=== PATIENT | male | born 1940 | race Caucasian/White ===

== ENCOUNTER 2017-05-18 20:19 | Emergency (ER) | payer OTHER, BC ==
[2017-05-18 20:26] VITALS: BP 137/76; BMI 33.4
--- NOTE | 2017-05-18 20:59 | DR.GENAD ---
HPI - Complaint/Symptoms Chief Complaint Doctors Comments: Patient complains of nasal congestion, cough with whitiesh to green sputum production for the pat 2-3 days. states he has been using OTC mucinex without improvement. He denies fever, chills, nausea or vomiting. states he has had decreased appetite recently. He denies chest pain of SOB. He denies wheezing or swelling of feet or legs. He denies tobacco or alcohol usage. States his pneumonia shot is up to date. Chief Complaint:: cough, runny nose, congestion, possible fever Self Treatment fo Chief Complaint: mucus and sinus relief - Nurses notes reviewed Nurses Notes Review: Yes - Source History Provided: Patient - Mode of Arrival Mode of Arrival: Ambulatory - Timing Onset of Chief Complaint: 05/04/17 Came on: Gradually - Duration Duration: Intermittent How lon Duration: Days - Location Location: cough with greenis sputum production; nasal congestion - Severity Severity: Moderate - Modifying Factors Worsens:: nothing Improves:: nothing PMH - PMH Past Medical History: Yes Past Medical History: Arthritis, Diabetes, Hypertension Past Surgical History: Yes Surgical History: Abdominal Surgery, Ortho Surgery Past Surgical History Comment: back(2015) nose repair, hernia - Family History History of Family Medical Conditions: Yes Family Medical History: Diabetes Mellitus, Cancer - Social History Do you use any recreational Drugs:: No - infectious screening Have you traveled outside the country in the last 6 months?: No ROS - Review of Systems Constitutional: No Symptoms Reported, Loss of Appetite. negative: See HPI, Chills, Diaphoresis, Fever, Malaise, Weakness, Irritable, Fatigue, Other Eyes: No Symptoms Reported. negative: See HPI, Eye Pain, Blurred Vision, Tearing, Discharge, Photophobia, Diplopia, Other ENTM: No Symptoms Reported, Nose Discharge, Nose Congestion. negative: See HPI , Ear Pain, Ear Discharge, Pulling on Ears, Hearing Loss, Nose Pain, Epistaxis, Mouth Pain, Mouth Swelling, Loose Teeth, Drooling, Throat Pain, Throat Swelling , Ear Foreign Body Respiratoy: No Symptoms Reported, Productive Cough. negative: See HPI, Non- Productive Cough, Moist Cough, Dry Cough, Hacking Cough, Barking Cough, Brassy Cough, Orthopnea, Short of Breath, Stridor, Wheezing, Hemoptysis, Other Cardiovascular: No Symptoms Reported. negative: See HPI, Chest Pain, Edema, Palpitations, Syncope, Cyanosis, Skin Mottling, Other Gastrointestinal/Abdominal: No Symptoms Reported. negative: See HPI, Abdominal Pain, Constipation, Diarrhea, Nausea, Vomiting, Food Intolerance, Other Genitourinary: No Symptoms Reported. negative: See HPI, Discharge, Dysuria, Frequency, Hematuria, Pain, Bleeding, Other Neurological: No Symptoms Reported. negative: See HPI, Anxiety, Depressed, Emotional Problems, Headache, Numbness, Paresthesia, Pre-existing Deficit, Seizure, Tingling, Tremors, Weakness, Dizziness, Problems Walking, Speech Problem, Other Musculoskeletal: No Symptoms Reported Integumentary: No Symptoms Reported Hematologic/Lymphatic: No Symptoms Reported Endocrine: No Symptoms Reported. negative: See HPI, Excessive Sweating, Flushing, Intolerance to Cold, Intolerance to Heat, Increased Hunger, Increased Thirst, Increased Urine, Unexplained Weight Gain, Unexplained Weight Loss, Failure to Thrive, Decreased Appetite, Other Psychiatric: No Symptoms Reported. negative: See HPI, Anxiety, Depression, Hallucinations, Excessive crying, Suicidal, Other PE - Vital Signs Vitals: Temperature 98.3 F Pulse Rate 82 Respiratory Rate 18 Blood Pressure [Left Arm] 114/57 Blood Pressure [Right Arm] 133/67 Blood Pressure 137/76 O2 Sat by Pulse Oximetry 98 - General Limitations: No Limitations General Appearance: Alert, In No Apparent Distress. negative: Appears Intoxicated, Anxious, Lethargic, Obtunded, In Distress, Obese, Cachectic, Other - Head Head Exam: Normal Inspection, Atraumatic, Normocephalic - Eyes Eye exam: Normal Appearance, PERRL, EOMI. negative: Scleral Icterus, Conjunctival Injection, Nystagmus, Miosis, Mydrasis, Periorbital Swelling, Periorbital Tenderness, Other - ENT ENT Exam: Normal Exam, Normal Oropharynx, Normal External Ear Exam, Mucous Membranes Moist, TM's Normal Bilaterally External Ear Exam: Normal External Inspection TM/Canal Exam: Bilateral Normal Nose Exam: Normal Nose Exam Mouth Exam: Normal Inspection. negative: Drooling, Trismus, Lip Swelling, Tongue Elevation, Tongue Swelling, Laceration, Other Throat Exam: Normal Inspection - Neck Neck Exam: Normal Inspection, Full ROM, Trachea Midline. negative: Tenderness, Meningismus, Lymphadenopathy, Thyromegaly, Other - Chest Chest Inspection: Normal Inspection, Symmetric Chest Wall Rise. negative: Tenderness, Rash, Abscess, Other - Respiratory Respiratory Exam: Normal Lung Sounds Bilat. negative: Accessory Muscle Use, Chest Wall Tenderness, Prolonged Expiratory Phase, Respiratory Distress, Stridor , Other Respiratory Exam: Bilateral Clear to Auscultation, Bilateral Rales (bilateral basilar rales) - Cardiovascular Cardiovascular Exam: Regular Rate, Normal Rhythm, Normal Heart Sounds, Systolic Murmur - Abdominal Exam Abdominal Exam: Normal Inspection, Normal Bowel Sounds, Soft. negative: Distention, Tenderness, Guarding, Rebound, Rigidity, Dimnished Bowel Sounds, Hyperactive Bowel Sounds, Hypoactive Bowel Sounds, Organomegaly, Trauma, Incision, Ascites, Mass, Bruit, Pulsatile Mass, Hernia, Other Abdominal Tenderness: negative: RUQ, RLQ, LUQ, LLQ, Epigastrium, Suprapubic, Diffuse, Mild, Moderate, Severe, Other - Extremities Extremities Exam: Normal Inspection, Full ROM, Normal Capillary Refill. negative: Tenderness, Edema, Joint Swelling, Calf Tenderness, Other - Back Back Exam: Normal Inspection, Full ROM. negative: Tenderness, (R) CVA Tenderness, (L) CVA Tenderness, Muscle Spasm, Paraspinal Tenderness, Vertebral Tenderness, Rashes, (R) Sciatic Notch Tenderness, (L) Sciatic Notch Tendern, (R ) Straight Leg Raise, (L) Straight Leg Raise, Other - Neurologic Neurological Exam: Alert, Oriented X3, CN II-XII Intact, Normal Gait, Reflexes Normal - Psychiatric Psychiatric Exam: Normal Affect, Normal Mood - Skin Skin Exam: Warm, Dry, Intact, Normal Color ROR - Labs Reviewed Laboratory Results Reviewed?: Yes (all x-ray results reviewed and discussed with patient and spouse) - XRAY XRAY Interpreted by: Radiologist (CXR: Lungs mildly hyperexpaned w/chronic interstitial change suggestive of COPD. Multiple healed rib fractures on right.) - Diagnosis Discharge Problem: Bronchitis Sinusitis, acute Qualifiers: Sinusitis location: ethmoidal - Discharge Plan Disposition: HOME, SELF-CARE Condition: Stable Prescriptions: Cetirizine HCl [Zyrtec Tab 10 mg] 10 mg PO DAILY #30 tab Fluticasone Nasal Whitney [FLONASE NASAL SPRAY *] 2 sprays ENOSTRIL DAILY #1 each Levofloxacin [LEVAQUIN TAB 500 MG *] 500 mg PO DAILY #10 tab - Follow ups/Referrals Follow ups/Referrals: ABEL JENKINS [Primary Care Provider] - 3 days - Instructions Instructions: Acute Bronchitis, Sinusitis, Adult, [id number]
[2017-05-18] MEDS ORDERED: ZyrTEC TAB 10 MG PO SCH (21:00)
[2017-05-18] MEDS ORDERED: LEVAQUIN TAB 500 MG PO SCH (21:00)
[2017-05-18] MEDS ORDERED: ZyrTEC TAB 10 MG ONE (21:06)
[2017-05-18] MEDS ORDERED: LEVAQUIN TAB 500 MG ONE (21:07)
--- NOTE | 2017-05-18 21:16 | RAD ---
PA and lateral chest Indication: Cough and dyspnea with congestion. Comparison: June 07, 2015. Impression: Heart size is stable. The lungs are mildly hyperexpanded with chronic interstitial change suggestive of COPD. There is no convincing edema, effusion, pneumothorax, or focal consolidation to suggest pneu monia. There are multiple stable healed rib fractures on the right. Reported By:
== END 2017-05-18 21:45 | disposition home or self-care (01) ==
LOC: ER 20:30
DX: J40 Bronchitis, not specified as acute or chronic (principal); J32.9 Chronic sinusitis, unspecified
CPT/HCPCS: 71020; 99282; 99283

== ENCOUNTER 2017-06-14 08:32 | Inpatient (IN) | payer OTHER, BC ==
[2017-06-14 08:43] VITALS: BMI 33.4
--- NOTE | 2017-06-14 09:13 | DR.GENAD ---
HPI - PCP Primary Care Physician: Reese - Complaint/Symptoms Chief Complaint Doctors Comments: INCREASING SOB AND CHEST PAIN TIMES Chief Complaint:: "Starting yesterday I just flet like I couldn't catch my breath. I am usually very active but yesterday I could barely climb the stairs. I also feel like I have a lump in the middle of my chest." - Nurses notes reviewed Nurses Notes Review: Yes - Source History Provided: Patient - Mode of Arrival Mode of Arrival: Ambulatory - Timing Onset of Chief Complaint: 06/14/17 Came on: Suddenly - Duration Duration: Constant Duration: Hours - Severity Severity: Moderate PMH - PMH Past Medical History: Yes Past Medical History: Arthritis, COPD, Diabetes, Hypertension Past Surgical History: Yes Surgical History: Abdominal Surgery, Appendectomy, Cholecystectomy, Other Past Surgical History Comment: Hernia surgery - Family History History of Family Medical Conditions: Yes Family Medical History: Diabetes Mellitus, Cancer - Social History Does patient currently use any type of tobacco product: No Have you used tobacco products in the last 12 months: No Type of Tobacco Use: None Does any household member use tobacco: No Alcohol Use: None Do you use any recreational Drugs:: No Lives With: Spouse Lives Where: Home - infectious screening In the last 2 months have you had wt loss of >10#?: NO Have you had fever, night sweats or hemotysis?: No Have you traveled outside the country in the last 6 months?: No Isolation: Standard PE - Vital Signs Vitals: Temperature 98.4 F Pulse Rate 79 Respiratory Rate 18 Blood Pressure [Left Arm] 114/57 Blood Pressure [Right Arm] 133/67 Blood Pressure 126/75 O2 Sat by Pulse Oximetry 97 ROR - Labs Reviewed Result Diagrams: 06/14/17 09:26 06/14/17 20:24 Laboratory: WBC 12.1 X10^3/uL (3.6-10.0) H 06/14/17 09:26 RBC 4.13 X10^6/uL (4.7-6.0) L 06/14/17 09:26 Hgb 11.6 g/dL (13.5-18.0) L 06/14/17 09:26 Hct 35.3 % (42.0-54.0) L 06/14/17 09:26 MCV 85.5 fL (80.0-100.0) 06/14/17 09: MCH 28.2 pg (27.0-34.0) 06/14/17 09: MCHC 32.9 g/dL (33.0-35.0) L 06/14/17 09: RDW 13.9 % (11.6-16.5) 06/14/17 09:26 Plt Count 377 X10^3/uL (150.0-450.0) 06/14/17 09: MPV 8.1 fL (7.4-11.0) 06/14/17 09:26 Neut % 76.0 % (42.0-75.0) H 06/14/17 09: Lymph % 7.2 % (21.0-51.0) L 06/14/17 09: [place] % 8.0 % (0.0-13.0) 06/14/17 09: Eos % 7.8 % (0.9-2.9) H 06/14/17 09: Baso % 1.0 % (0.2-1.0) 06/14/17 09: Neut # 9.2 x10^3/uL (2.2-4.8) H 06/14/17 09:26 Lymph # 0.9 X10^3/uL (1.3-2.9) L 06/14/17 09:26 [place] # 1.0 x10^3/uL (0.3-0.8) H 06/14/17 09:26 Eos # 0.9 x10^3/uL (0.0-0.2) H 06/14/17 09:26 Baso # 0.1 X10^3/uL (0.0-0.1) 06/14/17 09:26 Absolute Nucleated RBC 0.0 /100WBC 06/14/17 09:26 Sodium 134 mmol/L (136-145) L 06/14/17 09:26 Corrected Sodium 135 mmol/L (136-145) L 06/14/17 09:26 Potassium 4.7 mmol/L (3.5-5.1) 06/14/17 09:26 Chloride 102 mmol/L (98-107) 06/14/17 09:26 Carbon Dioxide 24.4 mmol/L (21-32) 06/14/17 09:26 BUN 33 mg/dL (7-18) H 06/14/17 09:26 Creatinine 1.90 mg/dL (0.70-1.30) H 06/14/17 09:26 Est GFR (MDRD) Af Amer 44 (>60) L 06/14/17 09:26 Est GFR (MDRD) Non-Af 37 (>60) L 06/14/17 09:26 Glucose 445 mg/dL (65-99) H 06/14/17 20:24 POC Glucose (mg/dL) 467 mg/dL (65-99) H* 06/14/17 20:09 Calcium 9.1 mg/dL (8.5-10.1) 06/14/17 09:26 Corrected Calcium 9.7 mg/dL (8.5-10.1) 06/14/17 09:26 Total Bilirubin 0.50 mg/dL (0.2-1.0) 06/14/17 09:26 AST 33 Units/L (15-37) 06/14/17 09:26 ALT 39 Units/L (12-78) 06/14/17 09:26 Alkaline Phosphatase 73 Units/L (46-116) 06/14/17 09:26 Creatine Kinase 367 Units/L (39-308) H 06/14/17 15:28 CK-MB (CK-2) 6.5 ng/mL (0-4.0) H* 06/14/17 15:28 CK/CKMB % Calc 1.8 % (<4) 06/14/17 15:28 Troponin I 0.30 ng/mL (0-1.5) 06/14/17 15:28 B-Natriuretic Peptide 151 pg/mL (0-79) H 06/14/17 09:26 Total Protein 7.8 g/dL (6.4-8.2) 06/14/17 09:26 Albumin 3.2 g/dL (3.4-5.0) L 06/14/17 09:26 Globulin 4.6 g/dL (2.5-4.5) H 06/14/17 09:26 Albumin/Globulin Ratio 0.7 Ratio (1.1-2.1) L 06/14/17 09:26 Specimen Type Clean catch urine 06/14/17 10:43 Urine Color Yellow (YELLOW) 06/14/17 10:43 Urine Appearance Hazy (CLEAR) 06/14/17 10:43 Urine pH 7.0 (5.0 - 8.0) 06/14/17 10:43 Ur Specific Kimball 1.005 (1.000-1.030) 06/14/17 10:43 Urine Protein 2+ (NEGATIVE) 06/14/17 10:43 Urine Glucose (UA) 1+ (NEGATIVE) 06/14/17 10:43 Urine Ketones Negative (NEGATIVE) 06/14/17 10:43 Urine Occult Blood 1+ (NEGATIVE) 06/14/17 10:43 Urine Nitrite Negative (NEGATIVE) 06/14/17 10:43 Urine Bilirubin Negative (NEGATIVE) 06/14/17 10:43 Urine Urobilinogen Normal (NORMAL) 06/14/17 10:43 Ur Leukocyte Esterase Negative (NEGATIVE) 06/14/17 10:43 Urine RBC 0-2 /HPF (NEGATIVE) 06/14/17 10:43 Urine WBC 0-2 /HPF (NEGATIVE) 06/14/17 10:43 Ur Squamous Epith Cells Negative /HPF (NEGATIVE) 06/14/17 10:43 Urine Bacteria Negative /HPF (NEGATIVE) 06/14/17 10:43 Ur Culture Indicated? No/not indicated 06/14/17 10:43 - Discharge Plan Disposition: ADMITTED INPATIENT Condition: Stable - Follow ups/Referrals - Instructions
[2017-06-14 09:49] LABS: BASOPHILS # (AUTO) 0.1 X10^3/uL (0.0-0.1); EOSINOPHILS # (AUTO) 0.9 x10^3/uL (0.0-0.2); EOSINOPHILS % (AUTO) 7.8 % (0.9-2.9); HEMATOCRIT 35.3 % (42.0-54.0); HEMOGLOBIN 11.6 g/dL (13.5-18.0); LYMPHOCYTES # (AUTO) 0.9 X10^3/uL (1.3-2.9); LYMPHOCYTES % (AUTO) 7.2 % (21.0-51.0); MEAN CORPUSCULAR HEMOGLOBIN 28.2 pg (27.0-34.0); MEAN CORPUSCULAR HGB CONC 32.9 g/dL (33.0-35.0); MEAN CORPUSCULAR VOLUME 85.5 fL (80.0-100.0); MEAN PLATELET VOLUME 8.1 fL (7.4-11.0); NEUTROPHILS # (AUTO) 9.2 x10^3/uL (2.2-4.8); PLATELET COUNT 377 X10^3/uL (150.0-450.0); RED BLOOD COUNT 4.13 X10^6/uL (4.7-6.0); RED CELL DISTRIBUTION WIDTH 13.9 % (11.6-16.5); WHITE BLOOD COUNT 12.1 X10^3/uL (3.6-10.0)
[2017-06-14 10:00] LABS: CALCIUM 9.1 mg/dL (8.5-10.1); CARBON DIOXIDE 24.4 mmol/L (21-32); CREATININE 1.9 mg/dL (0.70-1.30); TROPONIN I 0.08 ng/mL (0-1.5)
[2017-06-14 10:25] LABS: ALBUMIN 3.2 g/dL (3.4-5.0); CKMB % 1.6 % (<4); COR CA(FOR HYPOALB) 9.7 mg/dL (8.5-10.1); TOTAL PROTEIN 7.8 g/dL (6.4-8.2)
[2017-06-14 10:26] LABS: CREATINE KINASE MB 7.9 ng/mL (0-4.0)
--- NOTE | 2017-06-14 10:40 | RAD ---
HISTORY: Chest pain, difficulty breathing. Study: Single-view chest, done portably Comparison: May 18, 2017 Findings: Cardiac monitoring electrodes are noted on the chest. There is a slight [id number] deviation of th e mediastinum and trachea, reflecting volume loss in the left chest. The right lung is clear. Increas ed interstitial markings are present involving the left lung and both the left upper and left lower r egions. Findings may represent atelectasis or infiltrate . There are baseline changes likely represen ting COPD. No pleural fluid or pneumothorax is seen. Multiple healed rib fractures are present on the right. No acute osseous changes are identified. IMPRESSION: Changes of COPD with volume loss and increasing interstitial markings present in the left lung repres enting atelectasis or infiltrate. Reported By:
[2017-06-14 10:57] LABS: BILIRUBIN,URINE NEGATIVE (NEGATIVE); BLOOD/HEMOGLOBIN,URINE 1+ (NEGATIVE); GLUCOSE, URINE 1+ (NEGATIVE); KETONES,URINE NEGATIVE (NEGATIVE); LEUKOCYTE ESTERASE ,URINE NEGATIVE (NEGATIVE); NITRITES,URINE NEGATIVE (NEGATIVE); PROTEIN,URINE 2+ (NEGATIVE); UROBILINOGEN,URINE NORMAL (NORMAL)
[2017-06-14 11:12] LABS: APPEARANCE,URINE HAZY (CLEAR); COLOR,URINE YELLOW (YELLOW); RBC,URINE 0-2 /HPF (NEGATIVE)
[2017-06-14 11:13] LABS: BACTERIA,URINE NEGATIVE /HPF (NEGATIVE); SQUAMOUS EPITHELIAL CELL,UR NEGATIVE /HPF (NEGATIVE)
[2017-06-14] MEDS ORDERED: DUONEB 0.5 MG/3 MG NEB ONE (11:14)
[2017-06-14] MEDS ORDERED: ROCEPHIN VIAL 1 GM 1 GM in NS 50 ML IV + SPIKE MINIBAG* 50 ML IV ONE (11:14)
[2017-06-14] MEDS ORDERED: SOLU-Medrol 125 MG VIAL IVP ONE (11:14)
[2017-06-14] MEDS ORDERED: NS 1/2 1000 ML IV 1,000 ML IV ONE (11:41)
[2017-06-14] MEDS ORDERED: ROCEPHIN 1 GM IV PREMIX * OUT OF STOCK 50 ML IV ONE (11:41)
[2017-06-14] MEDS ORDERED: SOLU-Medrol 125 MG VIAL ONE (11:41)
[2017-06-14] MEDS ORDERED: NS 1/2 1000 ML IV 1,000 ML IV SCH (12:00)
[2017-06-14] MEDS ORDERED: LEVAQUIN TAB 500 MG PO SCH (14:00)
[2017-06-14] MEDS: NS 1000 ML 1,000 ML IV SCH ×2 (15:54→15:57)
[2017-06-14] MEDS: DUONEB 0.5 MG/3 MG NEB SCH ×2 (15:59→21:26)
[2017-06-14] MEDS ORDERED: LEVAQUIN PREMIX IV 750 MG 750 MG/150 ML BAG IV SCH (16:00)
[2017-06-14] MEDS: HumuLIN R SUBCUT PRN ×2 (17:03→21:04)
[2017-06-14 17:41] LABS: CKMB % 1.8 % (<4); CREATINE KINASE MB 6.5 ng/mL (0-4.0); TROPONIN I 0.3 ng/mL (0-1.5)
[2017-06-14] MEDS ORDERED: PROTONIX INJ 40 MG VIAL ONE (18:18)
[2017-06-14] MEDS ORDERED: SNACK - Diabetic Appropriate PO SCH (20:00)
[2017-06-14 22:42] LABS: CKMB % 2.5 % (<4); TROPONIN I 0.6 ng/mL (0-1.5)
[2017-06-14 22:49] LABS: CREATINE KINASE MB 8.7 ng/mL (0-4.0)
[2017-06-14] MEDS ORDERED: MAALOX or MYLANTA PO ONE (23:30)
[2017-06-15] MEDS ORDERED: NITRO-BID OINT 2% Multi-Dose tube ONE (00:57)
[2017-06-15] MEDS ORDERED: ASPIRIN 81 MG CHEWTAB ONE (00:59)
[2017-06-15] MEDS ORDERED: PLAVIX ONE (00:59)
[2017-06-15] MEDS ORDERED: HEPARIN SODIUM IN D5W 25,000 UNITS/500 ML BAG IV ONE (00:59)
[2017-06-15] MEDS ORDERED: LOPRESSOR INJ 5 MG AMP ONE (01:00)
[2017-06-15] MEDS ORDERED: HEPARIN SODIUM IN D5W 25,000 UNITS/500 ML BAG IV PRN (01:26)
[2017-06-15] MEDS ORDERED: LOPRESSOR INJ 5 MG AMP IVP ONE ×3 (01:26→02:07)
[2017-06-15] MEDS ORDERED: ASPIRIN 81 MG CHEWTAB PO ONE (01:26)
[2017-06-15] MEDS ORDERED: NITRO-BID OINT 2% Multi-Dose tube TD ONE (01:26)
[2017-06-15] MEDS ORDERED: HumuLIN R SUBCUT PRN (01:26)
[2017-06-15] MEDS ORDERED: PLAVIX PO ONE (01:26)
[2017-06-15] MEDS ORDERED: HEPARIN SODIUM INJ 5000 UNITS ONE (01:33)
[2017-06-15] MEDS ORDERED: TRAMADOL HCL PO PRN (01:44)
[2017-06-15] MEDS ORDERED: LYRICA CAP 50 MG PO SCH (02:00)
[2017-06-15] MEDS ORDERED: LYRICA CAP 50 MG PO ONE (02:02)
--- NOTE | 2017-06-15 02:13 | DR.H&P ---
H&P - History & Physical for Day of: H&P Date: 06/14/17 - Chief Complaint Chief Complaint: shortness of breath - Allergies Allergies/Adverse Reactions: Allergies Allergy/AdvReac Type Severity Reaction Status Date / Time No Known Drug Allergies Allergy Verified 05/18/17 20:27 - History of Present Illness History of Present Illness: Patient is a 76-year-old white male who presented to the [facility] emergency room complaining of shortness of breath for the past 2-3 days. Patient also complained of a "lump" feeling in his chest. The patient also complained of some cough and congestion. Patient's chest x-ray revealed questionable left lower lobe infiltrate as well as changes characteristic of COPD. Patient also stated that shortness of breath was worse with exertion. Patient was subsequently admitted for outpatient observation for further workup. - Past Medical History Past Medical History: Arthritis, COPD, Diabetes, Hypertension - Past Surgical History Surgical History: Abdominal Surgery, Appendectomy, Cholecystectomy, Other - Family History Family Medical History: Diabetes Mellitus, Cancer - Social History Does patient currently use any type of tobacco product: No Have you used tobacco products in the last 12 months: No Type of Tobacco Use: None Does any household member use tobacco: No Alcohol Use: None Drug Use: None - Medications Home Medications: Diclofenac Sodium [Diclofenac Sodium ER] 1 tab PO DAILY 06/14/17 [History Confirmed 06/14/17] Fenofibrate [TRICOR 160 MG *] 1 tab PO HS 06/14/17 [History Confirmed 06/14/17] Omeprazole [Omeprazole] 1 cap PO HS 06/14/17 [History Confirmed 06/14/17] Pregabalin [Lyrica] 1 cap PO BID 06/14/17 [History Confirmed 06/14/17] - Review of Systems Constitutional: See HPI Eyes: No Symptoms Reported ENT: No Symptoms Reported Respiratory: See HPI Cardiovascular: Chest Pain, See HPI Gastrointestinal: No Symptoms Reported Genitourinary: No Symptoms Reported Musculoskeletal: No Symptoms Reported Skin: No Symptoms Reported Neurological: No Symptoms Reported - Physical Exam Vital Signs: Temperature 97.5 F Pulse Rate [Left Radial] 108 Pulse Rate 99 Respiratory Rate 24 Blood Pressure [Left Arm] 171/85 Blood Pressure [Right Arm] 133/67 Blood Pressure 157/82 O2 Sat by Pulse Oximetry 90 Oriented: Normal Eyes: Normal Ear: Normal Nose: Normal Throat: Normal Respiratory: Rhonchi Throughout Cardiovascular: Normal : Normal Auscultation: Bowel Sounds: Normal Palpation: Normal Tenderness: Normal Skin: Normal Musculoskeletal: Normal Psychiatric: Normal Mood Description: Calm Affect: Normal Speech Pattern: Clear - Assessment/Plan (1) Chest pain Qualifiers: Chest pain type: precordial pain Qualified Code(s): R07.2 - Precordial pain Status: Acute Plan: 1. Admit for further workup. 2. Telemetry. 3. O2 at 2 L/m per nasal cannula. 4. Chest x-ray. 5. CMP and CBC. 6. UA C&S. 7. EKG every 3 hours 3 then every morning 2. 8. Troponin every 3 hours 3. 9. Xopenex jet nebulizer treatments every 6 hours and every 4 hours when necessary. 10. Solu-Medrol 40 mg IV every 8 hours. 11. Levaquin 500 milligrams IV daily. 12. Continue home medications. 13. For further orders to chart (2) Acute respiratory distress Status: Acute Plan: as above (3) Acute exacerbation of chronic obstructive pulmonary disease (COPD) Status: Acute Plan: as above (4) Left lower lobe pneumonia Status: Acute Plan: as above
[2017-06-15] MEDS ORDERED: LOPRESSOR TAB 25 MG ONE (02:25)
[2017-06-15] MEDS ORDERED: HEPARIN SODIUM INJ 5000 UNITS IVP ONE (02:45)
[2017-06-15] MEDS ORDERED: LOPRESSOR TAB 25 MG PO SCH (03:00)
[2017-06-15] MEDS ORDERED: ROBITUSSIN DM PO PRN (03:30)
[2017-06-15] MEDS ORDERED: NEURONTIN TAB 600 MG ONE (05:39)
[2017-06-15] MEDS ORDERED: NEURONTIN TAB 600 MG PO SCH (06:00)
[2017-06-15 06:22] VITALS: BP 143/70
[2017-06-15] MEDS ORDERED: ULTRAM PO PRN (06:45)
[2017-06-15 06:49] LABS: BASOPHILS # (AUTO) 0.1 X10^3/uL (0.0-0.1); BASOPHILS % (AUTO) 0.7 % (0.2-1.0); EOSINOPHILS # (AUTO) 0.1 x10^3/uL (0.0-0.2); EOSINOPHILS % (AUTO) 0.4 % (0.9-2.9); HEMATOCRIT 34.8 % (42.0-54.0); HEMOGLOBIN 11.6 g/dL (13.5-18.0); LYMPHOCYTES # (AUTO) 0.7 X10^3/uL (1.3-2.9); LYMPHOCYTES % (AUTO) 5.4 % (21.0-51.0); MEAN CORPUSCULAR HEMOGLOBIN 28.5 pg (27.0-34.0); MEAN CORPUSCULAR HGB CONC 33.3 g/dL (33.0-35.0); MEAN CORPUSCULAR VOLUME 85.7 fL (80.0-100.0); MEAN PLATELET VOLUME 7.9 fL (7.4-11.0); MONOCYTES # (AUTO) 0.8 x10^3/uL (0.3-0.8); NEUTROPHILS # (AUTO) 11.4 x10^3/uL (2.2-4.8); NEUTROPHILS % (AUTO) 87.5 % (42.0-75.0); PLATELET COUNT 319 X10^3/uL (150.0-450.0); RED BLOOD COUNT 4.06 X10^6/uL (4.7-6.0); RED CELL DISTRIBUTION WIDTH 13.6 % (11.6-16.5)
[2017-06-15 06:57] LABS: CALCIUM 9.1 mg/dL (8.5-10.1); CARBON DIOXIDE 21.3 mmol/L (21-32); COR CA(FOR HYPOALB) 9.9 mg/dL (8.5-10.1); CREATININE 1.87 mg/dL (0.70-1.30)
[2017-06-15 06:58] LABS: CHOL/HDL RATIO 4.4 (0.0-5.0)
[2017-06-15] MEDS ORDERED: PROTONIX INJ 40 MG VIAL IVP SCH ×2 (09:00)
[2017-06-15] MEDS ORDERED: ROCEPHIN VIAL 1 GM 1 GM in NS 50 ML IV + SPIKE MINIBAG* 50 ML IV SCH ×2 (09:00)
[2017-06-15] MEDS ORDERED: SOLU-Medrol 40 MG VIAL IVP SCH ×2 (09:00)
[2017-06-15] MEDS ORDERED: SYNTHROID 175 mcg TAB PO SCH (09:00)
[2017-06-15] MEDS ORDERED: DICLOFENAC SODIUM PO SCH (09:00)
[2017-06-15] MEDS ORDERED: XOPENEX 1.25 MG/3 ML NEBULE NEB SCH ×2 (09:00)
[2017-06-15] MEDS ORDERED: FLONASE NASAL SPRAY ENOSTRIL SCH (09:00)
[2017-06-15] MEDS ORDERED: ASPIRIN EC 81 MG PO SCH (09:00)
[2017-06-15] MEDS ORDERED: NS 1000 ML 1,000 ML IV SCH (14:00)
[2017-06-15] MEDS ORDERED: SNACK - Diabetic Appropriate PO SCH (20:00)
[2017-06-15] MEDS ORDERED: PRAVACHOL PO SCH (21:00)
[2017-06-15] MEDS ORDERED: PATIENT'S HOME MEDICATION (Omeprazole [Omeprazole] 1 CAP) PO SCH (21:00)
[2017-06-15] MEDS ORDERED: TRICOR TAB 160 MG PO SCH (21:00)
[2017-06-15] MEDS ORDERED: BENADRYL CAP/TAB 25 MG PO SCH (21:00)
[2017-06-16] MEDS ORDERED: LEVAQUIN PREMIX IV 750 MG 750 MG/150 ML BAG IV SCH (09:00)
== END 2017-06-15 06:55 | disposition short-term general hospital (02) | DRG 193 ==
LOC: ER 08:35 → MED/SURG 14:10 → OBSVTOIN 06-15 00:59 → ICU 06-15 01:02
PROVIDERS: ADMIT Internal Medicine; ATTEND Internal Medicine
DX: J18.1 Lobar pneumonia, unspecified organism (principal); R06.02 Shortness of breath; R07.89 Other chest pain; M13.89 Other specified arthritis, multiple sites; J44.1 Chronic obstructive pulmonary disease with (acute) exacerbation; E11.65 Type 2 diabetes mellitus with hyperglycemia; I10 Essential (primary) hypertension; R06.00 Dyspnea, unspecified; I21.3 ST elevation (STEMI) myocardial infarction of unspecified site; R79.1 Abnormal coagulation profile
CPT/HCPCS: 36415; 71010; 80053; 80061; 81001; 82550; 82553; 82947; 83880; 84484; 85025; 85610; 85730; 87040; 93005; 93010; 94640; 94760; 96365; 96367; 96374; 96375; 99284; A4222; C9113; G0378; J0696; J1644; J1815; J1956; J2930; J3490; J7620

== ENCOUNTER → 2017-10-26 | Outpatient (CLI) | payer OTHER, BC | LOC: LAB 16:38 | PROVIDERS: ATTEND Internal Medicine | DX: R73.9 Hyperglycemia, unspecified (principal) | CPT/HCPCS: 36415; 82947 ==

== ENCOUNTER → 2017-10-28 | Outpatient (CLI) | payer OTHER, BC | LOC: LAB 17:08 | PROVIDERS: ATTEND Internal Medicine | DX: R73.9 Hyperglycemia, unspecified (principal) | CPT/HCPCS: 36415; 82947 ==

== ENCOUNTER 2017-11-01 10:14 | Day surgery (SDC) | payer OTHER, BC ==
[~2017-11-01 10:14] MED LIST: NS 1000 ML 1,000 ML ONE
[2017-11-01] MEDS ORDERED: DIPRIVAN VIAL 20 ML ONE (10:47)
[2017-11-01 12:19] VITALS: BP 120/65
== END 2017-11-01 11:30 | disposition home or self-care (01) ==
LOC: SURG1 10:14
PROVIDERS: ATTEND Internal Medicine Gastroenterology
PROC: 0DC68ZZ Extirpation of Matter from Stomach, Via Natural or Artificial Opening Endoscopic (ICD-10-PCS; 2017-11-01)
PROC: 0DJ08ZZ Inspection of Upper Intestinal Tract, Via Natural or Artificial Opening Endoscopic (ICD-10-PCS; principal; 2017-11-01 17:15)
DX: R10.13 Epigastric pain (principal); Z43.1 Encounter for attention to gastrostomy; K21.9 Gastro-esophageal reflux disease without esophagitis; K29.60 Other gastritis without bleeding; R13.19 Other dysphagia
CPT/HCPCS: 99100; A4217; J3490

== ENCOUNTER → 2017-12-20 | Outpatient (CLI) | payer OTHER, BC ==
--- NOTE | 2017-12-20 13:49 | RAD ---
Examination: Chest, PA and lateral views History: SOB and cough, history of prostate CA Comparison 06/14/2017 Findings: Continued normal heart size. There are new sternal wires identified. Bilateral interstitial infiltrates are now present without evidence for mass formation, localized consolidation, pleural fl uid or pneumothorax. Impression: 1. Interval performance sternotomy since 06/14/2017. 2. Bilateral interstitial pulmonary process is nonspecific and may represent pneumonia. The possibili ty of metastatic disease should be clinically considered, given the history provided. Reported By:
== END ==
LOC: RAD 13:25
PROVIDERS: ATTEND Internal Medicine
DX: J44.9 Chronic obstructive pulmonary disease, unspecified (principal); I50.22 Chronic systolic (congestive) heart failure
CPT/HCPCS: 71046

== ENCOUNTER 2017-12-25 08:58 | Inpatient (IN) | payer OTHER, BC ==
[2017-12-25 09:17] VITALS: BMI 33.4
--- NOTE | 2017-12-25 09:20 | DR.SOBA ---
HPI - Complaints Chief Complaint Doctors Comments: INCREASING SOB TIMES SEVERAL DAYS. Chief Complaint:: PT C/O EATING HIS CEREAL THEN HE GOT SOB AND STARTED HAVING A DULL ACHE UNDER HIS BREAST BONE AND HE WANTED TO BE CHECKED OUT ,,BR PTS LUNGS ARE CLEAR PT WEARS HOME 02 2 LPM,,, - Reviewed Nurses Notes Reviewed: Yes - Source History Provided: Patient - Mode of Arrival Mode of Arrival: EMS - Timing Onset of Chief Complaint: 12/25/17 - Duration Duration: Days - Context Onset:: At Rest, With Light Exertion PE Risk Factors:: None History of:: COPD, CHF Currently on:: Inhaled Bronchodilators, Steroids Prehospital Care:: O2 - Modifying Factors Worsens:: Lying Flat Improves:: Sitting Up - Associated Signs and Symptoms Associated Signs and Symptoms: Wheeze, Cough, Leg Swelling - If Chest Pain Quality: Pressure like, Heavy Location: Chest Wall (EPIGASTRIC AREA.) - If Cough Cough: Productive, Green PMH - PMH Past Medical History: Yes Past Medical History: Arthritis, COPD, Diabetes, Hypertension Past Surgical History: Yes Surgical History: Abdominal Surgery, Appendectomy, Cholecystectomy, Other - Family History History of Family Medical Conditions: Yes Family Medical History: Diabetes Mellitus, Cancer - Social History Does patient currently use any type of tobacco product: No Have you used tobacco products in the last 12 months: No Type of Tobacco Use: None Does any household member use tobacco: No Alcohol Use: None Do you use any recreational Drugs:: No Lives With: Family Lives Where: Home - infectious screening In the last 2 months have you had wt loss of >10#?: NO Have you had fever, night sweats or hemotysis?: No Have you traveled outside the country in the last 6 months?: No Isolation: Standard ROS - Review of Systems Constitutional: Weakness, Fatigue. negative: Chills, Fever Eyes: negative: Eye Pain, Discharge ENTM: Ear Pain (EAR POPPING), Nose Congestion. negative: Nose Discharge, Throat Pain Respiratoy: Productive Cough, Short of Breath, Wheezing. negative: Hemoptysis Cardiovascular: Chest Pain, Edema Gastrointestinal/Abdominal: No Symptoms Reported. negative: Abdominal Pain, Diarrhea, Nausea, Vomiting Genitourinary: negative: Dysuria, Hematuria Musculoskeletal: Muscle Pain Integumentary: Wound (HEELING WOUND LT SHEEN.), Other (PRESSURE ULCER HEEL) Hematologic/Lymphatic: Easy Bleeding, Easy Bruising Endocrine: No Symptoms Reported All Other Systems: Reviewed and Negative PE - Vital Signs Vitals: Temperature 97.7 F Pulse Rate 61 Respiratory Rate 20 Blood Pressure [Left Arm] 143/70 Blood Pressure [Right Arm] 133/67 Blood Pressure 126/58 O2 Sat by Pulse Oximetry 100 - General Limitations: No Limitations General Appearance: Alert, In Distress - Head Head Exam: Normal Inspection - Eyes Eye exam: Normal Appearance - ENT ENT Exam: Normal External Ear Exam - Neck Neck Exam: Trachea Midline - Chest Chest Inspection: Symmetric Chest Wall Rise - Respiratory Respiratory Exam: Normal Lung Sounds Bilat Respiratory Exam: Bilateral Wheezing, Bilateral Rhonchi, Upper Wheezing, Upper Rhonchi, Lower Wheezing, Lower Rhonchi - Cardiovascular Cardiovascular Exam: Regular Rate, Normal Rhythm, Normal Heart Sounds - Abdominal Exam Abdominal Exam: Normal Bowel Sounds, Soft. negative: Tenderness - Extremities Extremities Exam: Edema - Neurologic Neurological Exam: Alert, Oriented X3 - Skin Skin Exam: Erythema - Discharge Plan Condition: Stable - Follow ups/Referrals Follow ups/Referrals: NFD,None [Primary Care Provider] - 3 days - Instructions
[2017-12-25] MEDS ORDERED: LASIX IVP ONE ×2 (09:29→09:57)
[2017-12-25] MEDS ORDERED: DUONEB 0.5 MG/3 MG NEB ONE (09:29)
[2017-12-25 10:13] LABS: BILIRUBIN,URINE NEGATIVE (NEGATIVE); BLOOD/HEMOGLOBIN,URINE NEGATIVE (NEGATIVE); GLUCOSE, URINE NEGATIVE (NEGATIVE); KETONES,URINE NEGATIVE (NEGATIVE); LEUKOCYTE ESTERASE ,URINE 2+ (NEGATIVE); NITRITES,URINE NEGATIVE (NEGATIVE); PROTEIN,URINE 1+ (NEGATIVE); UROBILINOGEN,URINE NORMAL (NORMAL)
[2017-12-25 10:16] LABS: APPEARANCE,URINE CLEAR (CLEAR); COLOR,URINE YELLOW (YELLOW)
[2017-12-25 10:17] LABS: BACTERIA,URINE NEGATIVE /HPF (NEGATIVE); MUCUS,URINE FEW /HPF (NEGATIVE); RBC,URINE NONE SEEN /HPF (NONE SEEN); SQUAMOUS EPITHELIAL CELL,UR NEGATIVE /HPF (NEGATIVE)
[2017-12-25 10:28] LABS: BASOPHILS # (AUTO) 0.1 X10^3/uL (0.0-0.1); BASOPHILS % (AUTO) 0.8 % (0.2-1.0); EOSINOPHILS # (AUTO) 0.7 x10^3/uL (0.0-0.2); EOSINOPHILS % (AUTO) 8.7 % (0.9-2.9); HEMATOCRIT 32.9 % (42.0-54.0); HEMOGLOBIN 11.1 g/dL (13.5-18.0); LYMPHOCYTES # (AUTO) 1.2 X10^3/uL (1.3-2.9); LYMPHOCYTES % (AUTO) 16.2 % (21.0-51.0); MEAN CORPUSCULAR HGB CONC 33.6 g/dL (33.0-35.0); MEAN CORPUSCULAR VOLUME 86.2 fL (80.0-100.0); MEAN PLATELET VOLUME 8.6 fL (7.4-11.0); MONOCYTES # (AUTO) 0.8 x10^3/uL (0.3-0.8); MONOCYTES % (AUTO) 10.5 % (0.0-13.0); NEUTROPHILS # (AUTO) 4.9 x10^3/uL (2.2-4.8); NEUTROPHILS % (AUTO) 63.8 % (42.0-75.0); PLATELET COUNT 244 X10^3/uL (150.0-450.0); RED BLOOD COUNT 3.82 X10^6/uL (4.7-6.0); RED CELL DISTRIBUTION WIDTH 15.3 % (11.6-16.5); WHITE BLOOD COUNT 7.7 X10^3/uL (3.6-10.0)
[2017-12-25 10:43] LABS: B-TYPE NATRIURETIC PEPTIDE 257 pg/mL (0-79); LACTIC ACID 1.2 mmol/L (0.4-2.0)
[2017-12-25 10:55] LABS: ALANINE AMINOTRANSFERASE 19 Units/L (12-78); ALBUMIN 3.1 g/dL (3.4-5.0); ALKALINE PHOSPHATASE 74 Units/L (46-116); ASPARTATE AMINO TRANSFERASE 16 Units/L (15-37); BLOOD UREA NITROGEN 26 mg/dL (7-18); CARBON DIOXIDE 33.4 mmol/L (21-32); CHLORIDE 100 mmol/L (98-107); CKMB % 3.7 % (<4); COR NA(FOR HYPERGLY) 141 mmol/L (136-145); CREATINE KINASE 68 Units/L (39-308); CREATINE KINASE MB 2.5 ng/mL (0-4.0); CREATININE 1.25 mg/dL (0.70-1.30); SODIUM 138 mmol/L (136-145); TOTAL PROTEIN 7.4 g/dL (6.4-8.2); TROPONIN I < 0.02 ng/mL (0-1.5); eGFR BLACK RACES > 60 (>60); eGFR NON BLACK RACES 59 (>60)
--- NOTE | 2017-12-25 10:55 | RAD ---
ACUTE ABDOMINAL SERIES CLINICAL HISTORY: 77-year-old male with epigastric pain. History of COPD, CHF and prostate cancer. COMPARISON: Chest radiograph 12/20/2017. FINDINGS: Post CABG changes are stable. Stable cardiomegaly with low lung volumes and prominent interstitium/pe rihilar lung markings with trace bilateral effusions and mild pulmonary edema Abdominal radiographs demonstrate a nonobstructive bowel gas pattern. Gas and stool are seen througho ut the colon. There is no small bowel distention. There is no radiographic evidence of pneumoperitone um. Posterior spinal fusion L4-L5 without evidence of hardware failure. Imaged osseous structures are intact. Soft tissues are unremarkable. IMPRESSION: 1. Cardiomegaly with mild pulmonary edema and low lung volumes with trace bilateral effusions. Correl ate clinically for CHF exacerbation and underlying infectious process. 2. Nonobstructive bowel gas pattern without radiographic evidence of pneumoperitoneum. Reported By:
[2017-12-25 11:02] LABS: CALCIUM 8.9 mg/dL (8.5-10.1)
[2017-12-25] MEDS: MAALOX or MYLANTA PO PRN ×2 (14:29→18:08)
[2017-12-25] MEDS: HumuLIN R SUBCUT PRN ×2 (16:43→20:03)
[2017-12-25 17:10] LABS: CKMB % 3.7 % (<4); CREATINE KINASE 59 Units/L (39-308); CREATINE KINASE MB 2.2 ng/mL (0-4.0); TROPONIN I < 0.02 ng/mL (0-1.5)
[2017-12-25] MEDS: ULTRAM PO PRN (17:44)
[2017-12-25] MEDS: SNACK - Diabetic Appropriate PO SCH (19:30)
[2017-12-25] MEDS: LASIX IVP SCH (20:02)
[2017-12-25] MEDS ORDERED: MYLICON TAB 80 MG CHEW PO PRN (20:31)
[2017-12-25] MEDS ORDERED: IPRATROPIUM ALBUTEROL IN SCH (21:00)
[2017-12-25] MEDS: DUONEB 0.5 MG/3 MG NEB SCH (22:55)
[2017-12-25] MEDS: PRAVACHOL PO SCH (23:55)
[2017-12-26 00:07] LABS: CKMB % 3.5 % (<4); CREATINE KINASE 52 Units/L (39-308); CREATINE KINASE MB 1.8 ng/mL (0-4.0); TROPONIN I < 0.02 ng/mL (0-1.5)
[2017-12-26] MEDS: ULTRAM PO PRN ×3 (05:06→20:34)
[2017-12-26] MEDS: SYNTHROID 175 mcg TAB PO SCH (06:00)
[2017-12-26 06:10] LABS: BASOPHILS # (AUTO) 0.1 X10^3/uL (0.0-0.1); BASOPHILS % (AUTO) 1.5 % (0.2-1.0); EOSINOPHILS # (AUTO) 0.5 x10^3/uL (0.0-0.2); EOSINOPHILS % (AUTO) 5.3 % (0.9-2.9); HEMATOCRIT 32.9 % (42.0-54.0); HEMOGLOBIN 11.1 g/dL (13.5-18.0); LYMPHOCYTES # (AUTO) 1.3 X10^3/uL (1.3-2.9); LYMPHOCYTES % (AUTO) 14.2 % (21.0-51.0); MEAN CORPUSCULAR HEMOGLOBIN 28.8 pg (27.0-34.0); MEAN CORPUSCULAR HGB CONC 33.6 g/dL (33.0-35.0); MEAN CORPUSCULAR VOLUME 85.5 fL (80.0-100.0); MEAN PLATELET VOLUME 8.5 fL (7.4-11.0); MONOCYTES # (AUTO) 0.8 x10^3/uL (0.3-0.8); MONOCYTES % (AUTO) 9.3 % (0.0-13.0); NEUTROPHILS # (AUTO) 6.3 x10^3/uL (2.2-4.8); NEUTROPHILS % (AUTO) 69.7 % (42.0-75.0); PLATELET COUNT 230 X10^3/uL (150.0-450.0); RED BLOOD COUNT 3.85 X10^6/uL (4.7-6.0); RED CELL DISTRIBUTION WIDTH 15.3 % (11.6-16.5)
[2017-12-26 06:30] LABS: BLOOD UREA NITROGEN 23 mg/dL (7-18); CALCIUM 8.7 mg/dL (8.5-10.1); CARBON DIOXIDE 38.6 mmol/L (21-32); CHLORIDE 96 mmol/L (98-107); COR NA(FOR HYPERGLY) 139 mmol/L (136-145); CREATININE 1.35 mg/dL (0.70-1.30); SODIUM 138 mmol/L (136-145); eGFR BLACK RACES > 60 (>60); eGFR NON BLACK RACES 54 (>60)
[2017-12-26] MEDS ORDERED: GLUCOPHAGE ONE (08:06)
[2017-12-26] MEDS: MAALOX or MYLANTA PO PRN ×2 (08:17→14:01)
[2017-12-26] MEDS: GLUCOPHAGE PO SCH (08:17)
[2017-12-26] MEDS: GLUCOTROL PO SCH (08:17)
[2017-12-26] MEDS: ZESTRIL TAB 10 MG PO SCH (08:17)
[2017-12-26] MEDS: LASIX IVP SCH ×3 (08:17→20:13)
[2017-12-26] MEDS: TRICOR TAB 160 MG PO SCH (08:17)
[2017-12-26] MEDS: DUONEB 0.5 MG/3 MG NEB SCH ×2 (09:15→20:04)
[2017-12-26] MEDS ORDERED: LANOXIN PO SCH (11:00)
[2017-12-26] MEDS: LOVENOX INJ 30 MG SYR SC SCH ×2 (11:50→20:13)
[2017-12-26 15:30] LABS: ALANINE AMINOTRANSFERASE 20 Units/L (12-78); ALKALINE PHOSPHATASE 71 Units/L (46-116); ASPARTATE AMINO TRANSFERASE 18 Units/L (15-37); CHOL/HDL RATIO 5.1 (0.0-5.0); CHOLESTEROL 128 mg/dL (0-200); COR CA(FOR HYPOALB) 9.5 mg/dL (8.5-10.1); HDL CHOLESTEROL 25 mg/dL (40-60); TRIGLYCERIDES 136 mg/dL (0-150)
[2017-12-26 15:40] LABS: TOTAL PROTEIN 7.2 g/dL (6.4-8.2)
[2017-12-26] MEDS: SNACK - Diabetic Appropriate PO SCH (20:13)
[2017-12-26] MEDS: HumuLIN R SUBCUT PRN (20:14)
[2017-12-26] MEDS: PRAVACHOL PO SCH (20:15)
[2017-12-26] MEDS: TYLENOL 325 MG TAB PO PRN (20:15)
[2017-12-27] MEDS ORDERED: BENADRYL CAP 50 MG PO PRN (00:33)
[2017-12-27 05:46] LABS: BASOPHILS # (AUTO) 0.1 X10^3/uL (0.0-0.1); BASOPHILS % (AUTO) 0.7 % (0.2-1.0); EOSINOPHILS # (AUTO) 0.4 x10^3/uL (0.0-0.2); EOSINOPHILS % (AUTO) 4.2 % (0.9-2.9); HEMATOCRIT 34.6 % (42.0-54.0); HEMOGLOBIN 11.5 g/dL (13.5-18.0); LYMPHOCYTES # (AUTO) 1.3 X10^3/uL (1.3-2.9); LYMPHOCYTES % (AUTO) 14.7 % (21.0-51.0); MEAN CORPUSCULAR HEMOGLOBIN 28.6 pg (27.0-34.0); MEAN CORPUSCULAR HGB CONC 33.4 g/dL (33.0-35.0); MEAN CORPUSCULAR VOLUME 85.8 fL (80.0-100.0); MEAN PLATELET VOLUME 8.5 fL (7.4-11.0); MONOCYTES # (AUTO) 0.9 x10^3/uL (0.3-0.8); MONOCYTES % (AUTO) 10.5 % (0.0-13.0); NEUTROPHILS # (AUTO) 6.2 x10^3/uL (2.2-4.8); NEUTROPHILS % (AUTO) 69.9 % (42.0-75.0); PLATELET COUNT 250 X10^3/uL (150.0-450.0); RED BLOOD COUNT 4.03 X10^6/uL (4.7-6.0); RED CELL DISTRIBUTION WIDTH 15.3 % (11.6-16.5); WHITE BLOOD COUNT 8.9 X10^3/uL (3.6-10.0)
[2017-12-27 06:36] LABS: ALBUMIN 2.8 g/dL (3.4-5.0); CALCIUM 8.8 mg/dL (8.5-10.1); COR CA(FOR HYPOALB) 9.8 mg/dL (8.5-10.1); CREATININE 1.5 mg/dL (0.70-1.30); DIGOXIN 0.35 ng/mL (0.9-2); TOTAL PROTEIN 6.9 g/dL (6.4-8.2)
--- NOTE | 2017-12-27 06:44 | RAD ---
HISTORY: Shortness of breath. Prior medical history of hypertension, diabetes, COPD, CHF, PR and pro state cancer. Study: Single-view chest Comparison: 12/26/2017. Findings: There are changes of CABG with median sternotomy sutures and metallic markers indicating coronary art aime bypass grafts. The trachea is midline. The heart size is normal. Increased interstitial markings are again seen, but are unchanged from prior studies. No consolidation, CHF, pleural fluid or pneumot horax is seen. There are multiple healed rib fractures present on the right. IMPRESSION: Stable increased interstitial markings present involving both lungs. An acute abnormality is not iden tified. Reported By:
[2017-12-27] MEDS ORDERED: GLUCOPHAGE ONE ×2 (08:36→08:48)
[2017-12-27] MEDS: LOVENOX INJ 30 MG SYR SC SCH ×2 (08:41→20:17)
[2017-12-27] MEDS: LASIX IVP SCH ×2 (08:41→20:16)
[2017-12-27] MEDS: TRICOR TAB 160 MG PO SCH (08:42)
[2017-12-27] MEDS: MAALOX or MYLANTA PO PRN (08:42)
[2017-12-27] MEDS: SYNTHROID 175 mcg TAB PO SCH (08:42)
[2017-12-27] MEDS: GLUCOTROL PO SCH (08:43)
[2017-12-27] MEDS: LANOXIN PO SCH (08:43)
[2017-12-27] MEDS: GLUCOPHAGE PO SCH (08:43)
[2017-12-27] MEDS: ZESTRIL TAB 10 MG PO SCH (08:43)
[2017-12-27] MEDS ORDERED: SALINE 0.9% 3 ML NEB TX ONE (09:38)
[2017-12-27] MEDS ORDERED: NS 250 ML IV 250 ML IV ONE (09:42)
[2017-12-27] MEDS: INVANZ INJ 1 GM VIAL 1 GM in NS 100 ML IV + SPIKE MINIBAG* 100 ML IV SCH (09:50)
[2017-12-27] MEDS: DUONEB 0.5 MG/3 MG NEB SCH ×2 (09:58→21:39)
[2017-12-27] MEDS: NS 250 ML IV 250 ML IV SCH ×2 (10:24→23:05)
--- NOTE | 2017-12-27 11:47 | DR.H&P ---
H&P - History & Physical for Day of: H&P Date: 12/25/17 - Chief Complaint Chief Complaint: is a 77 year old patient of ours who presented to the emergency room via EMS with reports of increasing shortness of breath. Patient also reports chest discomfort that began while he was eating. Patient reportedly wears home oxygen at 2L/min via nasal cannula. Associated symptoms include weakness, fatigue, ear pain, nasal congestion and lower extremity edema. On auscultation of lung castrejon patient noted with wheezing and rhonchi throughout. Patient noted with a non-healing wounds to left lower extremity at sheen and heel. Areas noted with erythema and edema. Left heel noted to be a stage three pressure ulcer with a scant amount of serosanguinous drainage with cultures collected. On arrival to the hospital patient noted with an oxygen saturation of 100% on 2L/min via nasal cannula however patient noted with a drop to 75% on oxygen with activity. Other vitals on arrival were 97.7-61-20- 100%-126/58. Labs were obtained. Abnormal lab values include the following: RBC 3.82, Hgb 11.1, Hct 32.9, Carbon Dioxide 33.4, BUN 26, Glucose 216, CRP 4.60, BNP 257, Albumin 3.1, A/G Ratio 0.7. Urinalysis: Protein 1+, Leuk Est 2+, WBC 0- 2, Mucus Few. Blood Cultures x2 Pending. Left Foot Wound Culture Pending; Gram Stain - WBC Few, Gram Pos Cocci Few in pairs in singles, Gram Neg Rods Rare. Sputum Culture Pending; Sputum Gram Stain - Gram Pos Rods Rare, Gram Pos Cocci Moderate, Gram Neg Rods Rare, WBC Moderate. EKG: Sinus Rhythm. Rate=53. Chest X -ray obtained on arrival revealed pulmonary edema and low lung volumes with trace bilateral effusions. Patient admitted to the hospital and started on Lasix IV twice daily. Will follow up with labs and chest xray in the morning. - Allergies Allergies/Adverse Reactions: Allergies Allergy/AdvReac Type Severity Reaction Status Date / Time No Known Drug Allergies Allergy Verified 12/25/17 09:02 - Past Medical History Past Medical History: Arthritis, COPD, Diabetes, Hypertension - Past Surgical History Surgical History: Abdominal Surgery, Appendectomy, Cholecystectomy, Tonsillectomy, Other - Family History Family Medical History: Diabetes Mellitus, Cancer - Social History Does patient currently use any type of tobacco product: No Have you used tobacco products in the last 12 months: No Type of Tobacco Use: None Does any household member use tobacco: No Alcohol Use: None Drug Use: None - Medications Home Medications: Fenofibrate [TRICOR 160 MG *] 1 tab PO DAILY 12/25/17 [History Confirmed ] Furosemide [LASIX TAB 20 MG *] 1 tab PO BID 12/25/17 [History Confirmed 12/25/17 ] Gabapentin [NEURONTIN TAB 600 MG *] 1 tab PO TID 12/25/17 [History Confirmed 07/04] Glipizide [GLUCOTROL 5 MG *] 1 tab PO DAILY 12/25/17 [History Confirmed 12/25/17 ] Ipratropium-Albuterol [Combivent Respimat Inhaler] 2 puff IN BID 12/25/17 [ History Confirmed 12/25/17] Lisinopril [ZESTRIL *] 1 tab PO DAILY 12/25/17 [History Confirmed 12/25/17] Pravastatin Sodium [Pravachol] 1 tab PO HS 12/25/17 [History Confirmed 12/25/17] Pregabalin [LYRICA 50 MG *] 1 tab PO DAILY 12/25/17 [History Confirmed 12/25/17] - Review of Systems Constitutional: Weakness, Malaise Eyes: No Symptoms Reported ENT: Ear Pain ("EAR POPPING" ), Nose Congestion Respiratory: Cough, Shortness of Breath, Wheezing Cardiovascular: Chest Pain, Edema Gastrointestinal: No Symptoms Reported Genitourinary: No Symptoms Reported Musculoskeletal: No Symptoms Reported Skin: Wound (LEFT HEEL WOUND/PRESSURE ULCER ) Neurological: Weakness - Physical Exam Vital Signs: Temperature 98.5 F Pulse Rate [Apical] 72 Pulse Rate 70 Respiratory Rate 19 Blood Pressure [Left Arm] 121/58 Blood Pressure [Right Arm] 124/58 Blood Pressure 126/58 O2 Sat by Pulse Oximetry 99 Oriented: Normal Eyes: Normal Ear: Normal Nose: Normal Throat: Normal Respiratory: Rhonchi Throughout, Wheezes Throughout Cardiovascular: Edema : Normal Auscultation: Bowel Sounds: Normal Palpation: Normal Tenderness: Normal Skin: Red, Tender (LEFT FOOT, LEG ), Wound Musculoskeletal: Instability Psychiatric: Normal Mood Description: Calm Affect: Normal Speech Pattern: Clear - Assessment/Plan (1) Acute exacerbation of CHF (congestive heart failure) Qualifiers: Heart failure type: unspecified Qualified Code(s): I50.9 - Heart failure, unspecified Status: Acute Plan: SUPPLEMENTAL OXYGEN, LASIX 40MGM IV BID, RESPIRATORY TREATMENTS, CONTINUE TO MONITOR
--- NOTE | 2017-12-27 12:12 | PCM.PROG ---
Progress Note - Progress Note for Day of Date: 12/26/17 - Subjective Subjective: WAS ADMITTED FOR ACUTE EXACERBATION OF CHF. TODAY, HE IS ALERT AND ORIENTED, SITTING ON THE SIDE OF THE BED ON MORNING ROUNDS. HE CONTINUES WITH COMPLAINTS OF SHORTNESS OF BREATH, COUGH, AND GENERALIZED WEAKNESS. ON EXAMINATION, HEART IS REGULAR IN RATE AND RHYTHM. BILATERAL LUNGS CONTINUE WITH SCATTERED WHEEZING AND RHONCHI THROUGHOUT. ABDOMEN IS ROUND, SOFT , AND NON-TENDER WITH NORMAL BOWEL SOUNDS NOTED IN ALL QUADRANTS. THERE IS A STAGE 3 WOUND NOTED TO THE LEFT HEEL. NECROTIC TISSUE NOTED TO SITE. THERE IS ALSO A HEALING WOUND NOTED TO THE LEFT LEG. PATIENT STATES, THERE WAS A SCAB THERE THAT I PICKED AT AND IT GOT INFECTED. NORMAL RANGE OF MOTION NOTED TO EXTREMITIES. HIS VITALS THIS MORNING ARE 97.9-73-24-100%-120/57. ABNORMAL LAB VALUES INCLUDE THE FOLLOWING: WBC 3.85, HGB 11.1, HCT 32.9, CHLORIDE 96, CARBON DIOXIDE 38.6, BUN 23, CREATININE 1.35, GLUCOSE 147, CRP 5.60, ALBUMIN 3.0, HCL 25, CHOLESTEROL 5.1. SPUTUM CULTURES AND WOUND CULTURES ARE PENDING. PATIENT REPORTS HAVING A SLEEP STUDY DONE ONE WEEK AGO. WE REVIEWED THE REPORT. IT REVEALED MODERATE OBSTRUCTIVE SLEEP APNEA. TODAY, WE WILL START PATIENT ON A NASAL CPAP AND ADMINISTER DIGOXIN 0.25MG PO X 1 DOSE AND LOVENOX 30MG SC BID. STARTING TOMORROW, HE WILL RECEIVE DIGOXIN 0.125MG PO DAILY. OTHERWISE, WE WILL CONTINUE WITH LASIX AND RESPIRATORY TREATMENTS FOR CONGESTIVE HEART FAILURE. WE PLAN TO FOLLOW UP WITH AM LABS AND CONTINUE TO MONITOR PATIENT. - Past Medical Family Social History Past Med/Fam/Surg Hx: No changes since H&P Allergies: Allergies No Known Drug Allergies Allergy (Verified 12/25/17 09:02) - Review of Systems ROS: No change since H&P - Vital Signs and I&O's Vital Signs: Temperature 98.5 F Pulse Rate [Apical] 72 Pulse Rate 70 Respiratory Rate 19 Blood Pressure [Left Arm] 121/58 Blood Pressure [Right Arm] 124/58 Blood Pressure 126/58 O2 Sat by Pulse Oximetry 99 Intake and Output: Intake & Output 12/25/17 12/26/17 12/27/17 12/28/17 11:59 11:59 11:59 11:59 Intake Total 2470 1030 Output Total 1999 8461 5927 Balance -1999 -5710 -2760 - Physical Exam Oriented: Normal Eyes: Normal Ear: Normal Nose: Normal Throat: Normal Respiratory: Generalized, Wheezes, Rhonchi Cardiovascular: Edema : Normal Auscultation: Bowel Sounds: Normal Tenderness: Normal Skin: Red, Tender (LEFT FOOT, LEG ), Wound Musculoskeletal: Instability Psychiatric: Normal Mood Description: Calm Affect: Normal Speech Pattern: Clear - Laboratory and Diagnostics Result Diagrams: 12/27/17 05:18 12/27/17 05:18 Labs: 12/25/17 09:49 Blood Blood Culture - Preliminary 12/25/17 09:40 Blood Blood Culture - Preliminary 12/25/17 12:48 Sputum - Expectorated Sputum Sputum Culture - Preliminary Enterobacter Aerogenes 12/25/17 12:48 Sputum - Expectorated Sputum - Final 12/25/17 10:02 Foot - Left Gram Stain - Final 12/25/17 10:02 Foot - Left Wound Culture - Preliminary Proteus Mirabilis Laboratory WBC 8.9 X10^3/uL (3.6-10.0) 12/27/17 05:18 RBC 4.03 X10^6/uL (4.7-6.0) L 12/27/17 05:18 Hgb 11.5 g/dL (13.5-18.0) L 12/27/17 05:18 Hct 34.6 % (42.0-54.0) L 12/27/17 05:18 MCV 85.8 fL (80.0-100.0) 12/27/17 05:18 MCH 28.6 pg (27.0-34.0) 12/27/17 05:18 MCHC 33.4 g/dL (33.0-35.0) 12/27/17 05:18 RDW 15.3 % (11.6-16.5) 12/27/17 05:18 Plt Count 250 X10^3/uL (150.0-450.0) 12/27/17 05:18 MPV 8.5 fL (7.4-11.0) 12/27/17 05:18 Neut % (Auto) 69.9 % (42.0-75.0) 12/27/17 05:18 Lymph % (Auto) 14.7 % (21.0-51.0) L 12/27/17 05:18 [place] % (Auto) 10.5 % (0.0-13.0) 12/27/17 05:18 Eos % (Auto) 4.2 % (0.9-2.9) H 12/27/17 05:18 Baso % (Auto) 0.7 % (0.2-1.0) 12/27/17 05:18 Neut # (Auto) 6.2 x10^3/uL (2.2-4.8) H 12/27/17 05:18 Lymph # (Auto) 1.3 X10^3/uL (1.3-2.9) 12/27/17 05:18 [place] # (Auto) 0.9 x10^3/uL (0.3-0.8) H 12/27/17 05:18 Eos # (Auto) 0.4 x10^3/uL (0.0-0.2) H 12/27/17 05:18 Baso # (Auto) 0.1 X10^3/uL (0.0-0.1) 12/27/17 05:18 Absolute Nucleated RBC 0.0 /100WBC 12/27/17 05:18 Sodium 137 mmol/L (136-145) 12/27/17 05:18 Corrected Sodium 137 mmol/L (136-145) 12/27/17 05:18 Potassium 4.2 mmol/L (3.5-5.1) 12/27/17 05:18 Chloride 97 mmol/L (98-107) L 12/27/17 05:18 Carbon Dioxide 37.0 mmol/L (21-32) H 12/27/17 05:18 BUN 30 mg/dL (7-18) H 12/27/17 05:18 Creatinine 1.50 mg/dL (0.70-1.30) H 12/27/17 05:18 Est GFR (MDRD) Af Amer 58 (>60) L 12/27/17 05:18 Est GFR (MDRD) Non-Af 48 (>60) L 12/27/17 05:18 Glucose 117 mg/dL (65-99) H 12/27/17 05:18 POC Glucose (mg/dL) 134 mg/dL (65-99) H 12/27/17 11:07 Lactic Acid 1.2 mmol/L (0.4-2.0) 12/25/17 09:40 Calcium 8.8 mg/dL (8.5-10.1) 12/27/17 05:18 Corrected Calcium 9.8 mg/dL (8.5-10.1) 12/27/17 05:18 Magnesium 2.0 mg/dL (1.7-2.9) 12/26/17 05:48 Total Bilirubin 0.40 mg/dL (0.2-1.0) 12/27/17 05:18 AST 13 Units/L (15-37) L 12/27/17 05:18 ALT 16 Units/L (12-78) 12/27/17 05:18 Alkaline Phosphatase 70 Units/L (46-116) 12/27/17 05:18 Creatine Kinase 52 Units/L (39-308) 12/25/17 22:29 CK-MB (CK-2) 1.8 ng/mL (0-4.0) 12/25/17 22:29 CK/CKMB % Calc 3.5 % (<4) 12/25/17 22:29 Troponin I < 0.02 ng/mL (0-1.5) 12/25/17 22:29 C-Reactive Protein 5.60 mg/L (0-3.0) H 12/26/17 05:48 B-Natriuretic Peptide 257 pg/mL (0-79) H 12/25/17 09:40 Total Protein 6.9 g/dL (6.4-8.2) 12/27/17 05:18 Albumin 2.8 g/dL (3.4-5.0) L 12/27/17 05:18 Globulin 4.1 g/dL (2.5-4.5) 12/27/17 05:18 Albumin/Globulin Ratio 0.7 Ratio (1.1-2.1) L 12/27/17 05:18 Triglycerides 136 mg/dL (0-150) 12/26/17 05:48 Cholesterol 128 mg/dL (0-200) 12/26/17 05:48 LDL Cholesterol, Calc 76 mg/dL (0-100) 12/26/17 05:48 HDL Cholesterol 25 mg/dL (40-60) L 12/26/17 05:48 Cholesterol/HDL Ratio 5.1 (0.0-5.0) H 12/26/17 05:48 Specimen Type Random urine 12/25/17 10:02 Urine Color Yellow (YELLOW) 12/25/17 10:02 Urine Appearance Clear (CLEAR) 12/25/17 10:02 Urine pH 7.0 (5.0 - 8.0) 12/25/17 10:02 Ur Specific [place] 1.005 (1.000-1.030) 12/25/17 10:02 Urine Protein 1+ (NEGATIVE) 12/25/17 10:02 Urine Glucose (UA) Negative (NEGATIVE) 12/25/17 10:02 Urine Ketones Negative (NEGATIVE) 12/25/17 10:02 Urine Occult Blood Negative (NEGATIVE) 12/25/17 10:02 Urine Nitrite Negative (NEGATIVE) 12/25/17 10:02 Urine Bilirubin Negative (NEGATIVE) 12/25/17 10:02 Urine Urobilinogen Normal (NORMAL) 12/25/17 10:02 Ur Leukocyte Esterase 2+ (NEGATIVE) 12/25/17 10:02 Urine RBC None seen /HPF (NONE SEEN) 12/25/17 10:02 Urine WBC 0-2 /HPF (NONE SEEN) 12/25/17 10:02 Ur Squamous Epith Cells Negative /HPF (NEGATIVE) 12/25/17 10:02 Urine Bacteria Negative /HPF (NEGATIVE) 12/25/17 10:02 Urine Mucus Few /HPF (NEGATIVE) 12/25/17 10:02 Ur Culture Indicated? No/not indicated 12/25/17 10:02 Digoxin 0.35 ng/mL (0.9-2) L 12/27/17 05:18 - Plan (1) Acute exacerbation of CHF (congestive heart failure) Status: Acute Qualifiers: Heart failure type: unspecified Qualified Code(s): I50.9 - Heart failure, unspecified Plan: SUPPLEMENTAL OXYGEN, LASIX 40MGM IV BID, RESPIRATORY TREATMENTS, CONTINUE TO MONITOR (2) Diabetic ulcer of heel Status: Acute Qualifiers: Diabetes mellitus type: due to underlying condition Laterality: left Non- pressure ulcer stage: with necrosis of muscle Qualified Code(s): E08.621 - Diabetes mellitus due to underlying condition with foot ulcer; 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
[2017-12-27] MEDS: ULTRAM PO PRN (18:41)
[2017-12-27] MEDS: SNACK - Diabetic Appropriate PO SCH (20:17)
[2017-12-27] MEDS: HumuLIN R SUBCUT PRN (20:18)
[2017-12-27] MEDS: PRAVACHOL PO SCH (20:34)
[2017-12-27] MEDS ORDERED: KLONOPIN TAB 1 MG PO SCH (21:00)
[2017-12-28] MEDS: ULTRAM PO PRN ×3 (04:19→17:14)
[2017-12-28 06:44] LABS: BASOPHILS # (AUTO) 0.1 X10^3/uL (0.0-0.1); BASOPHILS % (AUTO) 0.9 % (0.2-1.0); EOSINOPHILS # (AUTO) 0.4 x10^3/uL (0.0-0.2); EOSINOPHILS % (AUTO) 4.4 % (0.9-2.9); HEMATOCRIT 34.3 % (42.0-54.0); HEMOGLOBIN 11.6 g/dL (13.5-18.0); LYMPHOCYTES # (AUTO) 1.1 X10^3/uL (1.3-2.9); LYMPHOCYTES % (AUTO) 11.8 % (21.0-51.0); MEAN CORPUSCULAR HEMOGLOBIN 28.7 pg (27.0-34.0); MEAN CORPUSCULAR HGB CONC 33.8 g/dL (33.0-35.0); MEAN CORPUSCULAR VOLUME 84.9 fL (80.0-100.0); MEAN PLATELET VOLUME 8.7 fL (7.4-11.0); MONOCYTES % (AUTO) 10.9 % (0.0-13.0); NEUTROPHILS # (AUTO) 6.8 x10^3/uL (2.2-4.8); PLATELET COUNT 233 X10^3/uL (150.0-450.0); RED BLOOD COUNT 4.04 X10^6/uL (4.7-6.0); RED CELL DISTRIBUTION WIDTH 15.7 % (11.6-16.5); WHITE BLOOD COUNT 9.4 X10^3/uL (3.6-10.0)
--- NOTE | 2017-12-28 06:50 | RAD ---
HISTORY: Shortness of breath Study: Chest AP portable Comparison: 12/27/2017 Findings: The patient is status post median sternotomy and CABG. The heart is upper limits normal in size. No c ongestive heart failure or alveolar infiltrates are identified. Interstitial lung changes are present bilaterally not significantly different from the prior examination. The bony thorax is unremarkable. IMPRESSION: Interstitial lung changes, stable Reported By:
[2017-12-28 06:59] LABS: ALBUMIN 2.8 g/dL (3.4-5.0); CALCIUM 8.7 mg/dL (8.5-10.1); CARBON DIOXIDE 34.2 mmol/L (21-32); COR CA(FOR HYPOALB) 9.7 mg/dL (8.5-10.1); CREATININE 1.58 mg/dL (0.70-1.30); TOTAL PROTEIN 7.3 g/dL (6.4-8.2)
--- NOTE | 2017-12-28 08:21 | PCM.PROG ---
Progress Note - Progress Note for Day of Date: 12/27/17 - Subjective Subjective: WAS ADMITTED FOR ACUTE EXACERBATION OF CHF. TODAY, HE IS ALERT AND ORIENTED, SITTING ON THE SIDE OF THE BED ON MORNING ROUNDS. HE CONTINUES WITH COMPLAINTS OF SHORTNESS OF BREATH, PRODUCTIVE COUGH, AND GENERALIZED WEAKNESS. ON EXAMINATION, HEART IS REGULAR IN RATE AND RHYTHM. BILATERAL LUNGS CONTINUE WITH SCATTERED WHEEZING AND RHONCHI THROUGHOUT. ABDOMEN IS ROUND, SOFT, AND NON-TENDER WITH NORMAL BOWEL SOUNDS NOTED IN ALL QUADRANTS. THERE IS A STAGE 3 WOUND NOTED TO THE LEFT HEEL. NECROTIC TISSUE NOTED TO SITE. THERE IS ALSO A HEALING WOUND NOTED TO THE LEFT LEG. NORMAL RANGE OF MOTION NOTED TO EXTREMITIES. HIS VITALS THIS MORNING ARE 98.5-72-19-99% -121/58. ABNORMAL LAB VALUES INCLUDE THE FOLLOWING: RBC 4.03, HGB 11.5, HCT 34.6 , CHLORIDE 97, CARBON DIOXODE 37.0, BUN 30, CREATININE 1.50, GLUCOSE 117, AST 13 , ALBUMIN 2.8, DIGOXIN 0.35. SPUTUM CULTURES REPORT GROWTH OF ENTEROBACTER AEROGENES. WOUND CULTURES REPORT GROWTH OF PROTEUS MIRABILIS. BOTH ARE SENSITIVE TO INVANZ. WE WILL START INVANZ 1GM IV DAILY. HE REPORTS THAT HE WAS UNABLE TO TOLERATE THE CPAP WELL THROUGHOUT THE NIGHT. TONIGHT WE WILL START KLONOPIN 1MG PO HS. CONSULTED WITH PATIENT TODAY AND PLAN FOR DEBRIDEMENT OF NECROTIC TISSUE TO THE LEFT HEEL. WE ARE IN AGREEMENT WITH PLAN. OTHERWISE, WE WILL CONTINUE WITH LASIX AND RESPIRATORY TREATMENTS FOR CONGESTIVE HEART FAILURE AND PNEUMONIA. WE PLAN TO FOLLOW UP WITH AM LABS AND CONTINUE TO MONITOR PATIENT. - Past Medical Family Social History Past Med/Fam/Surg Hx: No changes since H&P Allergies: Allergies No Known Drug Allergies Allergy (Verified 12/25/17 09:02) - Review of Systems ROS: No change since H&P - Vital Signs and I&O's Vital Signs: Temperature 97.7 F Pulse Rate [Apical] 74 Pulse Rate 79 Respiratory Rate 20 Blood Pressure [Left Arm] 97/55 Blood Pressure [Right Arm] 124/58 Blood Pressure 126/58 O2 Sat by Pulse Oximetry 98 Intake and Output: Intake & Output 12/25/17 12/26/17 12/27/17 12/28/17 11:59 11:59 11:59 11:59 Intake Total 2470 1030 890 Output Total 1999 6581 4875 8757 Balance -1999 -1130 -1720 -560 - Physical Exam Oriented: Normal Eyes: Normal Ear: Normal Nose: Normal Throat: Normal Respiratory: Generalized, Wheezes, Rhonchi Cardiovascular: Edema : Normal Auscultation: Bowel Sounds: Normal Palpation: Normal Tenderness: Normal Skin: Red, Tender (LEFT FOOT, LEG ), Wound Musculoskeletal: Instability Psychiatric: Normal Mood Description: Calm Affect: Normal Speech Pattern: Clear, Appropriate - Laboratory and Diagnostics Result Diagrams: 12/28/17 05:55 12/28/17 05:55 Labs: 12/25/17 12:48 Sputum - Expectorated Sputum Sputum Culture - Final Enterobacter Aerogenes Enterobacter Cloacae 12/25/17 12:48 Sputum - Expectorated Sputum - Final 12/25/17 10:02 Foot - Left Gram Stain - Final 12/25/17 10:02 Foot - Left Wound Culture - Final Proteus Mirabilis Citrobacter Braakii 12/25/17 09:49 Blood Blood Culture - Preliminary 12/25/17 09:40 Blood Blood Culture - Preliminary Laboratory WBC 9.4 X10^3/uL (3.6-10.0) 12/28/17 05:55 RBC 4.04 X10^6/uL (4.7-6.0) L 12/28/17 05:55 Hgb 11.6 g/dL (13.5-18.0) L 12/28/17 05:55 Hct 34.3 % (42.0-54.0) L 12/28/17 05:55 MCV 84.9 fL (80.0-100.0) 12/28/17 05:55 MCH 28.7 pg (27.0-34.0) 12/28/17 05:55 MCHC 33.8 g/dL (33.0-35.0) 12/28/17 05:55 RDW 15.7 % (11.6-16.5) 12/28/17 05:55 Plt Count 233 X10^3/uL (150.0-450.0) 12/28/17 05:55 MPV 8.7 fL (7.4-11.0) 12/28/17 05:55 Neut % (Auto) 72.0 % (42.0-75.0) 12/28/17 05:55 Lymph % (Auto) 11.8 % (21.0-51.0) L 12/28/17 05:55 [place] % (Auto) 10.9 % (0.0-13.0) 12/28/17 05:55 Eos % (Auto) 4.4 % (0.9-2.9) H 12/28/17 05:55 Baso % (Auto) 0.9 % (0.2-1.0) 12/28/17 05:55 Neut # (Auto) 6.8 x10^3/uL (2.2-4.8) H 12/28/17 05:55 Lymph # (Auto) 1.1 X10^3/uL (1.3-2.9) L 12/28/17 05:55 [place] # (Auto) 1.0 x10^3/uL (0.3-0.8) H 12/28/17 05:55 Eos # (Auto) 0.4 x10^3/uL (0.0-0.2) H 12/28/17 05:55 Baso # (Auto) 0.1 X10^3/uL (0.0-0.1) 12/28/17 05:55 Absolute Nucleated RBC 0.0 /100WBC 12/28/17 05:55 Sodium 137 mmol/L (136-145) 12/28/17 05:55 Corrected Sodium 138 mmol/L (136-145) 12/28/17 05:55 Potassium 3.9 mmol/L (3.5-5.1) 12/28/17 05:55 Chloride 97 mmol/L (98-107) L 12/28/17 05:55 Carbon Dioxide 34.2 mmol/L (21-32) H 12/28/17 05:55 BUN 36 mg/dL (7-18) H 12/28/17 05:55 Creatinine 1.58 mg/dL (0.70-1.30) H 12/28/17 05:55 Est GFR (MDRD) Af Amer 55 (>60) L 12/28/17 05:55 Est GFR (MDRD) Non-Af 45 (>60) L 12/28/17 05:55 Glucose 151 mg/dL (65-99) H 12/28/17 05:55 POC Glucose (mg/dL) 148 mg/dL (65-99) H 12/28/17 05:55 Lactic Acid 1.2 mmol/L (0.4-2.0) 12/25/17 09:40 Calcium 8.7 mg/dL (8.5-10.1) 12/28/17 05:55 Corrected Calcium 9.7 mg/dL (8.5-10.1) 12/28/17 05:55 Magnesium 2.0 mg/dL (1.7-2.9) 12/26/17 05:48 Total Bilirubin 0.30 mg/dL (0.2-1.0) 12/28/17 05:55 AST 13 Units/L (15-37) L 12/28/17 05:55 ALT 15 Units/L (12-78) 12/28/17 05:55 Alkaline Phosphatase 71 Units/L (46-116) 12/28/17 05:55 Creatine Kinase 52 Units/L (39-308) 12/25/17 22:29 CK-MB (CK-2) 1.8 ng/mL (0-4.0) 12/25/17 22:29 CK/CKMB % Calc 3.5 % (<4) 12/25/17 22:29 Troponin I < 0.02 ng/mL (0-1.5) 12/25/17 22:29 C-Reactive Protein 5.60 mg/L (0-3.0) H 12/26/17 05:48 B-Natriuretic Peptide 257 pg/mL (0-79) H 12/25/17 09:40 Total Protein 7.3 g/dL (6.4-8.2) 12/28/17 05:55 Albumin 2.8 g/dL (3.4-5.0) L 12/28/17 05:55 Globulin 4.5 g/dL (2.5-4.5) 12/28/17 05:55 Albumin/Globulin Ratio 0.6 Ratio (1.1-2.1) L 12/28/17 05:55 Triglycerides 136 mg/dL (0-150) 12/26/17 05:48 Cholesterol 128 mg/dL (0-200) 12/26/17 05:48 LDL Cholesterol, Calc 76 mg/dL (0-100) 12/26/17 05:48 HDL Cholesterol 25 mg/dL (40-60) L 12/26/17 05:48 Cholesterol/HDL Ratio 5.1 (0.0-5.0) H 12/26/17 05:48 Specimen Type Random urine 12/25/17 10:02 Urine Color Yellow (YELLOW) 12/25/17 10:02 Urine Appearance Clear (CLEAR) 12/25/17 10:02 Urine pH 7.0 (5.0 - 8.0) 12/25/17 10:02 Ur Specific [place] 1.005 (1.000-1.030) 12/25/17 10:02 Urine Protein 1+ (NEGATIVE) 12/25/17 10:02 Urine Glucose (UA) Negative (NEGATIVE) 12/25/17 10:02 Urine Ketones Negative (NEGATIVE) 12/25/17 10:02 Urine Occult Blood Negative (NEGATIVE) 12/25/17 10:02 Urine Nitrite Negative (NEGATIVE) 12/25/17 10:02 Urine Bilirubin Negative (NEGATIVE) 12/25/17 10:02 Urine Urobilinogen Normal (NORMAL) 12/25/17 10:02 Ur Leukocyte Esterase 2+ (NEGATIVE) 12/25/17 10:02 Urine RBC None seen /HPF (NONE SEEN) 12/25/17 10:02 Urine WBC 0-2 /HPF (NONE SEEN) 12/25/17 10:02 Ur Squamous Epith Cells Negative /HPF (NEGATIVE) 12/25/17 10:02 Urine Bacteria Negative /HPF (NEGATIVE) 12/25/17 10:02 Urine Mucus Few /HPF (NEGATIVE) 12/25/17 10:02 Ur Culture Indicated? No/not indicated 12/25/17 10:02 Digoxin 0.35 ng/mL (0.9-2) L 12/27/17 05:18 - Plan (1) Acute exacerbation of CHF (congestive heart failure) Status: Acute Qualifiers: Heart failure type: unspecified Qualified Code(s): I50.9 - Heart failure, unspecified Plan: SUPPLEMENTAL OXYGEN, LASIX 40MGM IV BID, RESPIRATORY TREATMENTS, CONTINUE TO MONITOR (2) Pneumonia Status: Acute Qualifiers: Pneumonia type: due to other aerobic Gram-negative bacteria Laterality: unspecified laterality Lung location: unspecified part of lung Qualified Code(s): J15.6 - Pneumonia due to other Gram-negative bacteria Plan: INVANZ 1GM IV DAILY, RESPIRATORY TREATMENTS, SUPPLEMENTAL OXYGEN, CONTINUE TO MONITOR (3) Diabetic ulcer of heel Status: Acute Qualifiers: Diabetes mellitus type: due to underlying condition Laterality: left Non- pressure ulcer stage: with necrosis of muscle Qualified Code(s): E08.621 - Diabetes mellitus due to underlying condition with foot ulcer; 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
[2017-12-28] MEDS ORDERED: LR 1000 ML IV 1,000 ML IV ONE (08:40)
[2017-12-28] MEDS: INVANZ INJ 1 GM VIAL 1 GM in NS 100 ML IV + SPIKE MINIBAG* 100 ML IV SCH (08:53)
[2017-12-28] MEDS: DUONEB 0.5 MG/3 MG NEB SCH ×2 (09:48→21:37)
[2017-12-28] MEDS ORDERED: FENTANYL INJ 100 mcg ONE (11:24)
[2017-12-28] MEDS ORDERED: XYLOCAINE 1% and EPINEPHRINE 1:100,000 ONE (11:27)
[2017-12-28] MEDS ORDERED: NS IRRIGATION 1000 ML 1,000 ML with BACITRACIN VIAL 50,000 UNT IR ONE ×2 (11:31)
[2017-12-28] MEDS ORDERED: XYLOCAINE 1 % (PLAIN) IJ ONE (11:31)
[2017-12-28] MEDS ORDERED: MARCAINE 0.25% INJ ONE (11:39)
[2017-12-28] MEDS ORDERED: BACTROBAN OINT ONE (11:52)
[2017-12-28] MEDS: NS 250 ML IV 250 ML IV SCH (12:31)
[2017-12-28] MEDS ORDERED: GLUCOPHAGE ONE (12:32)
[2017-12-28] MEDS: ZESTRIL TAB 10 MG PO SCH (12:34)
[2017-12-28] MEDS: GLUCOTROL PO SCH (12:34)
[2017-12-28] MEDS: LANOXIN PO SCH (12:34)
[2017-12-28] MEDS: GLUCOPHAGE PO SCH (12:36)
[2017-12-28] MEDS: TRICOR TAB 160 MG PO SCH (12:36)
[2017-12-28] MEDS: SYNTHROID 175 mcg TAB PO SCH (12:39)
[2017-12-28] MEDS: LASIX IVP SCH ×2 (12:40→20:14)
[2017-12-28] MEDS: LOVENOX INJ 30 MG SYR SC SCH ×2 (12:40→20:11)
--- NOTE | 2017-12-28 14:16 | OR.GENERIC ---
Post-Op Note Generic - Post-Op Note Operative Report: excisional debridement of 4 x 4 cm stage 3 decubitus ulcer Lt heel was done ,. bulky dressing was applied .. Pt did well awaiting c & S ..
[2017-12-28] MEDS ORDERED: DIPRIVAN VIAL ONE (14:20)
[2017-12-28] MEDS ORDERED: VERSED ONE (14:20)
[2017-12-28] MEDS ORDERED: AYR NASAL DROPS PRN (19:53)
[2017-12-28] MEDS: KLONOPIN TAB 1 MG PO SCH (20:12)
[2017-12-28] MEDS: SNACK - Diabetic Appropriate PO SCH (20:12)
[2017-12-28] MEDS: PRAVACHOL PO SCH (20:13)
[2017-12-28] MEDS: TYLENOL 325 MG TAB PO PRN (20:13)
[2017-12-29] MEDS: ULTRAM PO PRN (00:06)
[2017-12-29] MEDS: TYLENOL 325 MG TAB PO PRN ×2 (04:51→12:24)
[2017-12-29 05:25] LABS: BASOPHILS # (AUTO) 0.1 X10^3/uL (0.0-0.1); BASOPHILS % (AUTO) 0.8 % (0.2-1.0); EOSINOPHILS # (AUTO) 0.5 x10^3/uL (0.0-0.2); EOSINOPHILS % (AUTO) 5.5 % (0.9-2.9); HEMATOCRIT 33.7 % (42.0-54.0); HEMOGLOBIN 11.1 g/dL (13.5-18.0); LYMPHOCYTES # (AUTO) 1.2 X10^3/uL (1.3-2.9); LYMPHOCYTES % (AUTO) 14.7 % (21.0-51.0); MEAN CORPUSCULAR HEMOGLOBIN 28.6 pg (27.0-34.0); MEAN CORPUSCULAR VOLUME 86.5 fL (80.0-100.0); MEAN PLATELET VOLUME 8.7 fL (7.4-11.0); MONOCYTES # (AUTO) 1.1 x10^3/uL (0.3-0.8); MONOCYTES % (AUTO) 13.3 % (0.0-13.0); NEUTROPHILS # (AUTO) 5.5 x10^3/uL (2.2-4.8); NEUTROPHILS % (AUTO) 65.7 % (42.0-75.0); PLATELET COUNT 261 X10^3/uL (150.0-450.0); RED CELL DISTRIBUTION WIDTH 15.4 % (11.6-16.5); WHITE BLOOD COUNT 8.3 X10^3/uL (3.6-10.0)
[2017-12-29] MEDS: NS 250 ML IV 250 ML IV SCH ×2 (05:30→17:29)
[2017-12-29 05:40] LABS: ALBUMIN 2.7 g/dL (3.4-5.0); CALCIUM 8.4 mg/dL (8.5-10.1); CARBON DIOXIDE 35.1 mmol/L (21-32); COR CA(FOR HYPOALB) 9.4 mg/dL (8.5-10.1); CREATININE 1.51 mg/dL (0.70-1.30); DIGOXIN 0.63 ng/mL (0.9-2); TOTAL PROTEIN 7.2 g/dL (6.4-8.2)
[2017-12-29] MEDS: SYNTHROID 175 mcg TAB PO SCH (06:03)
--- NOTE | 2017-12-29 07:38 | RAD ---
HISTORY: Shortness of breath. Study: Portable chest. Comparison: Chest x-ray dated December 28, 2017. Findings: Postsurgical changes status post CABG. The cardiac silhouette is at the upper limits of normal. Over all lung aeration appears unchanged. No obvious pneumothorax. The bony thorax is unremarkable. IMPRESSION: No significant change in lung aeration. Reported By:
[2017-12-29] MEDS: MAALOX or MYLANTA PO PRN (08:37)
[2017-12-29] MEDS: DUONEB 0.5 MG/3 MG NEB SCH ×2 (08:58→20:59)
--- NOTE | 2017-12-29 09:07 | DR.PROGNOT ---
Hospital Progress Notes - Progress Note for Day of: Progress Note Date: 12/29/17 - Chief Complaint Chief Complaint: PO debridement of Lt heel decubitus ulcer .. doing well . alert .cooperative . dressing intact . - Past Medical Family Social History Past Med/Fam/Surg Hx: No changes since H&P Allergies: Allergies No Known Drug Allergies Allergy (Verified 12/25/17 09:02) - Review Of Systems ROS: No change since H&P - Vital Signs Vital Signs: Temperature 97.7 F Pulse Rate [Apical] 67 Pulse Rate 73 Respiratory Rate 20 Blood Pressure [Left Arm] 115/57 Blood Pressure [Right Arm] 124/58 Blood Pressure 126/58 O2 Sat by Pulse Oximetry 95 - Physical Exam Oriented: Normal Eyes: Normal Ear: Normal Nose: Normal Throat: Normal Respiratory: Generalized, Wheezes, Rhonchi Cardiovascular: Edema : Normal GI:Auscultation: Normal GI:Palpation: Normal GI: Tenderness: Normal Skin: Red, Tender (no erythema or edema . dressing intact ...distal pulses +), Wound Musculoskeletal: Instability Psychiatric: Normal Mood Description: Calm Affect: Normal Speech Pattern: Clear, Appropriate - Laboratory and Diagnostics Result Diagrams: 12/29/17 04:30 12/29/17 04:30 Labs: 12/28/17 12:12 Foot - Left Gram Stain - Final 12/25/17 12:48 Sputum - Expectorated Sputum Sputum Culture - Final Enterobacter Aerogenes Enterobacter Cloacae 12/25/17 12:48 Sputum - Expectorated Sputum - Final 12/25/17 10:02 Foot - Left Gram Stain - Final 12/25/17 10:02 Foot - Left Wound Culture - Final Proteus Mirabilis Citrobacter Braakii 12/25/17 09:49 Blood Blood Culture - Preliminary 12/25/17 09:40 Blood Blood Culture - Preliminary Laboratory WBC 8.3 X10^3/uL (3.6-10.0) 12/29/17 04:30 RBC 3.90 X10^6/uL (4.7-6.0) L 12/29/17 04:30 Hgb 11.1 g/dL (13.5-18.0) L 12/29/17 04:30 Hct 33.7 % (42.0-54.0) L 12/29/17 04:30 MCV 86.5 fL (80.0-100.0) 12/29/17 04:30 MCH 28.6 pg (27.0-34.0) 12/29/17 04:30 MCHC 33.0 g/dL (33.0-35.0) 12/29/17 04:30 RDW 15.4 % (11.6-16.5) 12/29/17 04:30 Plt Count 261 X10^3/uL (150.0-450.0) 12/29/17 04:30 MPV 8.7 fL (7.4-11.0) 12/29/17 04:30 Neut % (Auto) 65.7 % (42.0-75.0) 12/29/17 04:30 Lymph % (Auto) 14.7 % (21.0-51.0) L 12/29/17 04:30 [place] % (Auto) 13.3 % (0.0-13.0) H 12/29/17 04:30 Eos % (Auto) 5.5 % (0.9-2.9) H 12/29/17 04:30 Baso % (Auto) 0.8 % (0.2-1.0) 12/29/17 04:30 Neut # (Auto) 5.5 x10^3/uL (2.2-4.8) H 12/29/17 04:30 Lymph # (Auto) 1.2 X10^3/uL (1.3-2.9) L 12/29/17 04:30 [place] # (Auto) 1.1 x10^3/uL (0.3-0.8) H 12/29/17 04:30 Eos # (Auto) 0.5 x10^3/uL (0.0-0.2) H 12/29/17 04:30 Baso # (Auto) 0.1 X10^3/uL (0.0-0.1) 12/29/17 04:30 Absolute Nucleated RBC 0.0 /100WBC 12/29/17 04:30 Sodium 135 mmol/L (136-145) L 12/29/17 04:30 Corrected Sodium 137 mmol/L (136-145) 12/29/17 04:30 Potassium 4.1 mmol/L (3.5-5.1) 12/29/17 04:30 Chloride 95 mmol/L (98-107) L 12/29/17 04:30 Carbon Dioxide 35.1 mmol/L (21-32) H 12/29/17 04:30 BUN 35 mg/dL (7-18) H 12/29/17 04:30 Creatinine 1.51 mg/dL (0.70-1.30) H 12/29/17 04:30 Est GFR (MDRD) Af Amer 58 (>60) L 12/29/17 04:30 Est GFR (MDRD) Non-Af 48 (>60) L 12/29/17 04:30 Glucose 164 mg/dL (65-99) H 12/29/17 04:30 POC Glucose (mg/dL) 168 mg/dL (65-99) H 12/29/17 05:44 Lactic Acid 1.2 mmol/L (0.4-2.0) 12/25/17 09:40 Calcium 8.4 mg/dL (8.5-10.1) L 12/29/17 04:30 Corrected Calcium 9.4 mg/dL (8.5-10.1) 12/29/17 04:30 Magnesium 2.0 mg/dL (1.7-2.9) 12/26/17 05:48 Total Bilirubin 0.30 mg/dL (0.2-1.0) 12/29/17 04:30 AST 11 Units/L (15-37) L 12/29/17 04:30 ALT 14 Units/L (12-78) 12/29/17 04:30 Alkaline Phosphatase 69 Units/L (46-116) 12/29/17 04:30 Creatine Kinase 52 Units/L (39-308) 12/25/17 22:29 CK-MB (CK-2) 1.8 ng/mL (0-4.0) 12/25/17 22:29 CK/CKMB % Calc 3.5 % (<4) 12/25/17 22:29 Troponin I < 0.02 ng/mL (0-1.5) 12/25/17 22:29 C-Reactive Protein 5.60 mg/L (0-3.0) H 12/26/17 05:48 B-Natriuretic Peptide 257 pg/mL (0-79) H 12/25/17 09:40 Total Protein 7.2 g/dL (6.4-8.2) 12/29/17 04:30 Albumin 2.7 g/dL (3.4-5.0) L 12/29/17 04:30 Globulin 4.5 g/dL (2.5-4.5) 12/29/17 04:30 Albumin/Globulin Ratio 0.6 Ratio (1.1-2.1) L 12/29/17 04:30 Triglycerides 136 mg/dL (0-150) 12/26/17 05:48 Cholesterol 128 mg/dL (0-200) 12/26/17 05:48 LDL Cholesterol, Calc 76 mg/dL (0-100) 12/26/17 05:48 HDL Cholesterol 25 mg/dL (40-60) L 12/26/17 05:48 Cholesterol/HDL Ratio 5.1 (0.0-5.0) H 12/26/17 05:48 Specimen Type Random urine 12/25/17 10:02 Urine Color Yellow (YELLOW) 12/25/17 10:02 Urine Appearance Clear (CLEAR) 12/25/17 10:02 Urine pH 7.0 (5.0 - 8.0) 12/25/17 10:02 Ur Specific [place] 1.005 (1.000-1.030) 12/25/17 10:02 Urine Protein 1+ (NEGATIVE) 12/25/17 10:02 Urine Glucose (UA) Negative (NEGATIVE) 12/25/17 10:02 Urine Ketones Negative (NEGATIVE) 12/25/17 10:02 Urine Occult Blood Negative (NEGATIVE) 12/25/17 10:02 Urine Nitrite Negative (NEGATIVE) 12/25/17 10:02 Urine Bilirubin Negative (NEGATIVE) 12/25/17 10:02 Urine Urobilinogen Normal (NORMAL) 12/25/17 10:02 Ur Leukocyte Esterase 2+ (NEGATIVE) 12/25/17 10:02 Urine RBC None seen /HPF (NONE SEEN) 12/25/17 10:02 Urine WBC 0-2 /HPF (NONE SEEN) 12/25/17 10:02 Ur Squamous Epith Cells Negative /HPF (NEGATIVE) 12/25/17 10:02 Urine Bacteria Negative /HPF (NEGATIVE) 12/25/17 10:02 Urine Mucus Few /HPF (NEGATIVE) 12/25/17 10:02 Ur Culture Indicated? No/not indicated 12/25/17 10:02 Digoxin 0.63 ng/mL (0.9-2) L 12/29/17 04:30 Tissue Pathology To follow 12/28/17 12:12 - Assessment and Plan 1: decubitus ulcer Lt heel .PO debridement . same local care ,ATB,OOB and diabetic control. 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
[2017-12-29] MEDS ORDERED: GLUCOPHAGE ONE (09:31)
[2017-12-29] MEDS: LASIX IVP SCH ×2 (10:25→21:48)
[2017-12-29] MEDS: INVANZ INJ 1 GM VIAL 1 GM in NS 100 ML IV + SPIKE MINIBAG* 100 ML IV SCH (10:25)
[2017-12-29] MEDS: TRICOR TAB 160 MG PO SCH (10:25)
[2017-12-29] MEDS: GLUCOPHAGE PO SCH (10:26)
[2017-12-29] MEDS: ZESTRIL TAB 10 MG PO SCH (10:26)
[2017-12-29] MEDS: LANOXIN PO SCH (10:26)
[2017-12-29] MEDS: GLUCOTROL PO SCH (10:27)
[2017-12-29] MEDS: FIORICET TAB PO PRN ×2 (10:28→23:22)
[2017-12-29] MEDS: LOVENOX INJ 30 MG SYR SC SCH ×2 (10:50→21:59)
[2017-12-29] MEDS: HumuLIN R SUBCUT PRN ×2 (12:24→21:51)
[2017-12-29] MEDS: KLONOPIN TAB 1 MG PO SCH (21:47)
[2017-12-29] MEDS: PRAVACHOL PO SCH (21:47)
[2017-12-29] MEDS: SNACK - Diabetic Appropriate PO SCH (21:50)
[2017-12-30] MEDS: NS 250 ML IV 250 ML IV SCH (03:39)
[2017-12-30 05:28] LABS: BASOPHILS # (AUTO) 0.1 X10^3/uL (0.0-0.1); BASOPHILS % (AUTO) 0.8 % (0.2-1.0); EOSINOPHILS # (AUTO) 0.4 x10^3/uL (0.0-0.2); EOSINOPHILS % (AUTO) 5.5 % (0.9-2.9); HEMATOCRIT 33.9 % (42.0-54.0); HEMOGLOBIN 11.4 g/dL (13.5-18.0); LYMPHOCYTES # (AUTO) 1.2 X10^3/uL (1.3-2.9); LYMPHOCYTES % (AUTO) 15.4 % (21.0-51.0); MEAN CORPUSCULAR HEMOGLOBIN 28.9 pg (27.0-34.0); MEAN CORPUSCULAR HGB CONC 33.6 g/dL (33.0-35.0); MEAN CORPUSCULAR VOLUME 86.1 fL (80.0-100.0); MEAN PLATELET VOLUME 8.6 fL (7.4-11.0); MONOCYTES # (AUTO) 0.9 x10^3/uL (0.3-0.8); MONOCYTES % (AUTO) 11.3 % (0.0-13.0); NEUTROPHILS # (AUTO) 5.2 x10^3/uL (2.2-4.8); PLATELET COUNT 269 X10^3/uL (150.0-450.0); RED BLOOD COUNT 3.94 X10^6/uL (4.7-6.0); RED CELL DISTRIBUTION WIDTH 15.1 % (11.6-16.5); WHITE BLOOD COUNT 7.8 X10^3/uL (3.6-10.0)
[2017-12-30 05:59] LABS: ALBUMIN 2.7 g/dL (3.4-5.0); CALCIUM 8.7 mg/dL (8.5-10.1); CARBON DIOXIDE 33.2 mmol/L (21-32); COR CA(FOR HYPOALB) 9.7 mg/dL (8.5-10.1); CREATININE 1.64 mg/dL (0.70-1.30); DIGOXIN 0.62 ng/mL (0.9-2); TOTAL PROTEIN 7.4 g/dL (6.4-8.2)
[2017-12-30] MEDS: SYNTHROID 175 mcg TAB PO SCH (06:07)
[2017-12-30] MEDS: HumuLIN R SUBCUT PRN (06:08)
--- NOTE | 2017-12-30 08:11 | RAD ---
Examination: Portable AP chest History: SOB Comparison 12/29/2017 Findings: Continued normal heart size. No change in appearance of lungs or pleural surfaces. Diffuse interstitial process is stable in the right lung and left base. No large pleural effusion or complica ting pneumothorax. Impression: No interval change since 12/29/2017. Reported By:
[2017-12-30] MEDS: FIORICET TAB PO PRN (08:23)
[2017-12-30] MEDS ORDERED: GLUCOPHAGE ONE (08:33)
[2017-12-30] MEDS: DUONEB 0.5 MG/3 MG NEB SCH (09:06)
[2017-12-30] MEDS: LASIX IVP SCH (09:49)
[2017-12-30] MEDS: LOVENOX INJ 30 MG SYR SC SCH (09:49)
[2017-12-30] MEDS: INVANZ INJ 1 GM VIAL 1 GM in NS 100 ML IV + SPIKE MINIBAG* 100 ML IV SCH (09:49)
[2017-12-30] MEDS: TRICOR TAB 160 MG PO SCH (09:50)
[2017-12-30] MEDS: GLUCOPHAGE PO SCH (09:50)
[2017-12-30] MEDS: ZESTRIL TAB 10 MG PO SCH (09:50)
[2017-12-30] MEDS: GLUCOTROL PO SCH (09:50)
[2017-12-30] MEDS: LANOXIN PO SCH (09:50)
[2017-12-30] MEDS ORDERED: NEOSPORIN OINT ONE (11:52)
[2017-12-30] MEDS ORDERED: NEOSPORIN OINT TOP ONE (12:08)
[2017-12-30 12:12] VITALS: BP 109/55
== END 2017-12-30 13:05 | disposition home or self-care (01) | DRG 291 ==
LOC: ER 09:02 → ICU 12:11 → MED/SURG 12-28 15:38
PROVIDERS: ADMIT Internal Medicine; ATTEND Internal Medicine
PROC: 0JBR0ZZ Excision of Left Foot Subcutaneous Tissue and Fascia, Open Approach (ICD-10-PCS; principal; 2017-12-28 10:30)
DX: I50.9 Heart failure, unspecified (principal); J44.1 Chronic obstructive pulmonary disease with (acute) exacerbation; J15.6 Pneumonia due to other Gram-negative bacteria; R06.02 Shortness of breath; R94.31 Abnormal electrocardiogram [ECG] [EKG]; B95.2 Enterococcus as the cause of diseases classified elsewhere; B96.4 Proteus (mirabilis) (morganii) as the cause of diseases classified elsewhere; L97.428 Non-pressure chronic ulcer of left heel and midfoot with other specified severity; E11.65 Type 2 diabetes mellitus with hyperglycemia; E11.42 Type 2 diabetes mellitus with diabetic polyneuropathy; E11.621 Type 2 diabetes mellitus with foot ulcer; R26.89 Other abnormalities of gait and mobility
CPT/HCPCS: 36415; 51702; 71045; 74022; 80053; 80061; 80162; 81001; 82550; 82553; 83605; 83735; 83880; 84484; 85025; 86140; 87040; 87070; 87075; 87077; 87186; 87205; 88305; 93005; 93010; 94640; 94660; 96374; 97535; 99100; 99284; A4218; A4222; A4618; S0020; J1335; J1650; J1815; J1940; J2001; J2250; J3010; J3490; J7120; J7620